=== PATIENT | female | born 1995 | race African-American/Black ===

== ENCOUNTER 2021-01-09 19:33 | Emergency (ER) | payer OTHER, SELFPAY ==
[2021-01-09 21:20] LABS: Absolute Lymphocytes (CBC) 2.2 K/uL (0.7-4.9); Basophils % 0.4 % (0-1.3); Hematocrit 29.2 % (36.0-45.0); Lymphocytes % 36.8 % (15.3-44.8); MPV 8.1 fL (7.6-11.3)
--- NOTE | 2021-01-09 21:27 | ER ---
Nurse's Notes [facility] Name: Trish Yung Age: 25 yrs Sex: Female : 1995 Arrival Date: 01/09/2021 Time: 19:35 Bed 19 Private MD: Diagnosis: Abnormal uterine and vaginal bleeding, unspecified Presentation: 01/09 19:53 Chief complaint: Patient states: vaginal bleeding with clots since 11/29/20, reports lp1 having regular menstrual cycles, hx of tubal ligation; Reports feeling dizzy at work today about 1700. Coronavirus screen: Client denies travel out of the [place] in the last 14 days. At this time, the client does not indicate any symptoms associated with coronavirus-19. Ebola Screen: No symptoms or risks identified at this time. Initial Sepsis Screen: Does the patient meet any 2 criteria? No. Patient's initial sepsis screen is negative. Does the patient have a suspected source of infection? No. Patient's initial sepsis screen is negative. Risk Assessment: Do you want to hurt yourself or someone else? Patient reports no desire to harm self or others. Onset of symptoms was January 09, 2021. 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 - Social history:: Smoking status: Patient denies any tobacco usage or history of. Screenin:56 Abuse screen: Denies threats or abuse. Denies injuries from another. Nutritional lp1 screening: No deficits noted. Tuberculosis screening: No symptoms or risk factors identified. Fall Risk None identified. Vital Signs: 19:53 BP 151 / 100; Pulse 90; Resp 18; Temp 98.8(O); Pulse Ox 100% on R/A; Weight 90.26 kg lp1 (R); Height 5 ft. 2 in. (157.48 cm); Pain 0/10; 19:53 Body Mass Index 36.40 (90.26 kg, 157.48 cm) lp1 ED Course: 19:35 Patient arrived in ED. bp1 19:38 Brandon Flower PA is PHCP. [facility] 19:38 Fco Rogers MD is Attending Physician. [facility] 19:55 Triage completed. lp1 19:55 Arm band placed on. lp1 21:08 Inserted saline lock: 20 gauge in right antecubital area, using aseptic technique. dh4 Blood collected. 21:55 Leanne Giles, RN is Primary Nurse. ll2 Administered Medications: No medications were administered Outcome: : Discharge ordered by . [facility] 22:02 Patient left the ED. 2 Signatures: Brandon Flower PA PA [facility] Roseann Leon, RN RN lp1 Neftali Morales 4 Leanne Giles, WILLIS RN 2 Ailyn Radford bp1
--- NOTE | 2021-01-09 21:28 | EDPHYS ---
Physician Documentation [facility] Name: Trish Yung Age: 25 yrs Sex: Female : 1995 Arrival Date: 01/09/2021 Time: 19:35 Bed 19 Private MD: ED Physician Fco Rogers HPI: 01/09 20:13 This 25 yrs old Black Female presents to ER via Ambulatory with complaints of Vaginal jmm Bleeding, Lightheaded. 20:13 The patient presents with vaginal bleeding that is. Onset: The symptoms/episode jmm began/occurred gradually, 1 month(s) ago. Modifying factors: The symptoms are alleviated by nothing, the symptoms are aggravated by nothing. Associated signs and symptoms: Pertinent positives: weakness. The patient's method of control includes tubal ligation. Patient states bleeding began approx 1 month ago, has decreased in severity but at its worse was passing clots. Patient is concerned she may have lost too much blood. . 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 - Social history:: Smoking status: Patient denies any tobacco usage or history of. ROS: 20:13 Constitutional: Negative for fever, chills, and weight loss, Cardiovascular: Negative jmm for chest pain, palpitations, and edema, Respiratory: Negative for shortness of breath, cough, wheezing, and pleuritic chest pain. 20:13 : Positive for vaginal bleeding. 20:13 All other systems are negative. Exam: 20:13 Constitutional: This is a well developed, well nourished patient who is awake, alert, jmm and in no acute distress. Head/Face: atraumatic. Eyes: EOMI, no conjunctival erythema appreciated ENT: Moist Mucus Membranes Neck: Trachea midline, Supple Chest/axilla: Normal chest wall appearance and motion. Cardiovascular: Regular rate and rhythm. No edema appreciated Respiratory: Normal respirations, no respiratory distress appreciated Abdomen/GI: Non distended, soft Back: Normal ROM Skin: General appearance color normal MS/ Extremity: Moves all extremities, no obvious deformities appreciated, no edema noted to the lower extremities Neuro: Awake and alert, normal gait Psych: Behavior is normal, Mood is normal, Patient is cooperative and pleasant Vital Signs: 19:53 BP 151 / 100; Pulse 90; Resp 18; Temp 98.8(O); Pulse Ox 100% on R/A; Weight 90.26 kg lp1 (R); Height 5 ft. 2 in. (157.48 cm); Pain 0/10; 19:53 Body Mass Index 36.40 (90.26 kg, 157.48 cm) lp1 MDM: 19:43 Patient medically screened. [facility] 21:25 Data reviewed: vital signs, nurses notes. Counseling: I had a detailed discussion with [facility] the patient and/or guardian regarding: the historical points, exam findings, and any diagnostic results supporting the discharge/admit diagnosis, lab results, the need for outpatient follow up, to return to the emergency department if symptoms worsen or persist or if there are any questions or concerns that arise at home. ED course: VS normal. H/H low but not transfuseable. Will prescribe ferrous sulfate. Patient advised to follow up with obgy for further evaluation. Patient understood and agrees with the plan of care. . 01/09 19:51 Order name: CBC with Diff; Complete Time: 21:24 [facility] 01/09 21:17 Order name: Urine Dipstick--Ancillary (enter results) [facility] 01/09 19:51 Order name: Urine Dipstick-Ancillary (obtain specimen); Complete Time: 21:30 [facility] 01/09 21:17 Order name: Urine --Ancillary (enter results) [facility] 01/09 21:18 Order name: Urine Dipstick-Ancillary; Complete Time: 21:35 [facility] 01/09 21:18 Order name: Urine --Ancillary; Complete Time: 21:35 [facility] 01/09 19:51 Order name: Urine Test (obtain specimen); Complete Time: 21:30 [facility] Administered Medications: No medications were administered Disposition: 01/10 06:53 Co-signature as Attending Physician, Fco Rogers MD. [email or web address] Disposition: 01/09/21 21:27 Discharged to Home. Impression: Abnormal uterine and vaginal bleeding, unspecified. - Condition is Stable. - Discharge Instructions: Abnormal Uterine Bleeding. - Prescriptions for Ferrous Sulfate 325 mg (65 mg Iron) Oral Tablet - take 1 tablet by ORAL route every 8 hours; 90 tablet. - Medication Reconciliation Form, Thank You Letter, Antibiotic Education, Prescription Opioid Use, Work release form form. - Follow up: Private Physician; When: 2 - 3 days; Reason: Recheck today's complaints, Continuance of care, Re-evaluation by your physician. Signatures: Dispatcher [employer] EDMS Brandon Flower PA PA jmm Pena, Laura, RN RN lp1 Leanne Giles RN RN ll2 Fco Rogers MD MD mh7 Corrections: (The following items were deleted from the chart) 01/09 22:02 21:27 01/09/2021 21:27 Discharged to Home. Impression: Abnormal uterine and vaginal ll2 bleeding, unspecified. Condition is Stable. Forms are Medication Reconciliation Form, Thank You Letter, Antibiotic Education, Prescription Opioid Use. Follow up: Private Physician; When: 2 - 3 days; Reason: Recheck today's complaints, Continuance of care, Re-evaluation by your physician. kevin
[2021-01-09 21:33] LABS: Urine Blood NEGATIVE (NEG); Urine Glucose NEGATIVE (NEG); Urine Protein NEGATIVE (NEG); Urine Specific Gravity 1.015 (1.005-1.030); Urine pH 5.5 (5.0-7.0)
[2021-01-09 22:50] VITALS: BP 151/100; TEMP 98.8; O2SAT 100
== END 2021-01-09 22:02 | disposition home or self-care (01) ==
LOC: ER 19:33
DX: N93.9 Abnormal uterine and vaginal bleeding, unspecified (principal)
CPT/HCPCS: 36415; 81003; 81025; 85025; 99283

== ENCOUNTER 2021-02-09 23:46 | Emergency (ER) | payer SELFPAY ==
--- OUTSIDE RECORDS SUMMARY | 2021-02-09 23:49 | XMS REPORT | Continuity of Care Document ---
:1995 Author Organization [facility] t Address [address] [place] [address] Care Team Providers Name Role Phone Brett Mauro DO Attending Clinician Ashley CARPENTER C Attending Clinician Niko RIVAS N Attending Clinician Problems This patient has no known problems. Allergies, Adverse Reactions, Alerts This patient has no known allergies or adverse reactions. Medications This patient has no known medications. Procedures This patient has no known procedures. Encounters Start End Encounter Admission Attending Care Care Encounter Source Date/Time Date/Time Type Type Clinicians Facility Department ID 2021-02-09 2021-02-09 Patient PRESTON Mauro [id number] 00:00:00 00:00:00 Outreach [facility] [id number] Brett [facility] [id number] PAVILLION [id number] 2020-12-30 2020-12-30 Telephone PRESTON Ramirez [id number] 00:00:00 00:00:00 Nohemy Ruelas DIRECTOR TRIAL [id number] [facility] [id number] MATERNAL [id number] & CHILD [address] [place] [address] 2020-12-04 2020-12-04 Office PRESTON Ramirez [id number] 08:31:40 09:41:05 Visit Nohemy Ruelas DIRECTOR TRIAL [id number] [facility] [id number] MATERNAL [id number] & CHILD [address] [facility] 2019-06-21 2019-06-21 Office Niko [facility] [id number] 14:54:30 16:16:01 Visit Kristin Landry DIRECTOR TRIAL [id number] [facility] [id number] MATERNAL [id number] & CHILD [address] [facility] Results This patient has no known results.
--- NOTE | 2021-02-10 01:08 | EDPHYS ---
Physician Documentation [facility] Name: Trish Yung Age: 26 yrs Sex: Female : 1995 Arrival Date: 02/09/2021 Time: 23:49 Bed 13 Private MD: ATUL Physician Law Durham HPI: 02/10 01:06 This 26 yrs old Black Female presents to ER via Ambulatory with complaints of Ear Pain. pm1 01:06 The patient presents with pain. The complaints affect the right ear. Onset: The pm1 symptoms/episode began/occurred 3 day(s) ago. Modifying factors: The symptoms are alleviated by covering ear, the symptoms are aggravated by touching, wind. Associated signs and symptoms: Pertinent negatives: fever, sore throat, tinnitus. Severity of symptoms: in the emergency department the symptoms are worse. The patient has not recently seen a physician. 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 - Social history:: Smoking status: Patient denies any tobacco usage or history of. ROS: 01:06 Constitutional: Negative for fever, chills, and weight loss. pm1 01:06 Neck: Negative for injury, pain, and swelling, Cardiovascular: Negative for chest pain, palpitations, and edema, Respiratory: Negative for shortness of breath, cough, wheezing, and pleuritic chest pain, MS/Extremity: Negative for injury and deformity, Skin: Negative for injury, rash, and discoloration. 01:06 Neuro: Negative for headache, weakness, numbness, tingling, and seizure. 01:06 ENT: Positive for ear pain, Negative for drainage from ear(s). Exam: 01:06 Constitutional: This is a well developed, well nourished patient who is awake, alert, pm1 and in no acute distress. Head/Face: Normocephalic, atraumatic. 01:06 Skin: Warm, dry with normal turgor. Normal color with no rashes, no lesions, and no evidence of cellulitis. MS/ Extremity: Pulses equal, no cyanosis. Neurovascular intact. Full, normal range of motion. 01:06 ENT: External ear(s): are unremarkable, Ear canal(s): are normal, TM's: bulging, on the right, erythema, that is moderate, on the right, Examination of the other ear shows no obvious abnormality. 01:06 Cardiovascular: Exam negative for acute changes, Rate: normal, Rhythm: regular, Pulses: no pulse deficits are appreciated. 01:06 Respiratory: Exam negative for acute changes, respiratory distress, shortness of breath. 01:06 Neuro: Exam negative for acute changes, Orientation: is normal, Mentation: is normal, Motor: is normal, moves all fours. Vital Signs: 00:20 Pulse 97; Resp 18; Temp 99.1(O); Pulse Ox 99% on R/A; Weight 89.81 kg; Height 5 ft. 2 em in. (157.48 cm); Pain 6/10; 00:20 Body Mass Index 36.21 (89.81 kg, 157.48 cm) em MDM: 00:25 Patient medically screened. pm1 01:06 Data reviewed: vital signs. Data interpreted: Pulse oximetry: on room air is 99 %. pm1 Interpretation: normal. Counseling: I had a detailed discussion with the patient and/or guardian regarding: the historical points, exam findings, and any diagnostic results supporting the discharge/admit diagnosis, the need for outpatient follow up, a family practitioner, to return to the emergency department if symptoms worsen or persist or if there are any questions or concerns that arise at home. Administered Medications: No medications were administered Disposition: 06:57 Co-signature as Attending Physician, Law Durham MD I agree with the assessment and manolo plan of care. Disposition: 02/10/21 01:07 Discharged to Home. Impression: Otitis media, unspecified, right ear. - Condition is Stable. - Discharge Instructions: Otitis Media, Adult. - Prescriptions for Augmentin 875- 125 mg Oral Tablet - take 1 tablet by ORAL route every 12 hours for 10 days; 20 tablet. Tylenol- Codeine #3 300-30 mg Oral Tablet - take 2 tablets by ORAL route every 4-6 hours As needed; 20 tablet. - Medication Reconciliation Form, Thank You Letter, Antibiotic Education, Prescription Opioid Use, Work release form form. - Follow up: Emergency Department; When: As needed; Reason: Worsening of condition. Follow up: Private Physician; When: 2 - 3 days; Reason: Recheck today's complaints, Continuance of care, Re-evaluation by your physician. - Problem is new. - Symptoms have improved. Signatures: Law Durham MD MD cha Munoz, Edgar, RN RN Jeff Patricia NP TALKBACK HOST pm1 Darrius Carballo RN RN sf Corrections: (The following items were deleted from the chart) 01:25 01:07 02/10/2021 01:07 Discharged to Home. Impression: Otitis media, unspecified, right sf ear. Condition is Stable. Forms are Medication Reconciliation Form, Thank You Letter, Antibiotic Education, Prescription Opioid Use. Follow up: Emergency Department; When: As needed; Reason: Worsening of condition. Follow up: Private Physician; When: 2 - 3 days; Reason: Recheck today's complaints, Continuance of care, Re-evaluation by your physician. Problem is new. Symptoms have improved. pm1
--- NOTE | 2021-02-10 01:08 | ER ---
Nurse's Notes [facility] Name: Trish Yung Age: 26 yrs Sex: Female : 1995 Arrival Date: 02/09/2021 Time: 23:49 Bed 13 Private MD: Diagnosis: Otitis media, unspecified, right ear Presentation: 02/10 00:20 Chief complaint: Patient states: right ear pain that started 2 days ago, pain radiates em into right side of neck and right arm, denies fever. Coronavirus screen: Client denies travel out of the [place] in the last 14 days. Ebola Screen: Patient negative for fever greater than or equal to 101.5 degrees Fahrenheit, and additional compatible Ebola Virus Disease symptoms Patient denies exposure to infectious person. Patient denies travel to an Ebola-affected area in the 21 days before illness onset. No symptoms or risks identified at this time. Initial Sepsis Screen: Does the patient meet any 2 criteria? HR > 90 bpm. No. Patient's initial sepsis screen is negative. Does the patient have a suspected source of infection? No. Patient's initial sepsis screen is negative. Risk Assessment: Do you want to hurt yourself or someone else? Patient reports no desire to harm self or others. Onset of symptoms was February 10, 2021. 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 - Social history:: Smoking status: Patient denies any tobacco usage or history of. Assessment: 01:24 Reassessment: MD/EMMETT only. sf Vital Signs: 00:20 Pulse 97; Resp 18; Temp 99.1(O); Pulse Ox 99% on R/A; Weight 89.81 kg; Height 5 ft. 2 em in. (157.48 cm); Pain 6/10; 00:20 Body Mass Index 36.21 (89.81 kg, 157.48 cm) em ED Course: 02/09 23:49 Patient arrived in ED. cl3 02/10 00:23 Triage completed. em 00:24 Arm band placed on. em 00:25 Darrius Carballo, RN is Primary Nurse. sf 00:25 Jeff Alvarez NP is PHCP. pm1 00:25 Law Durham MD is Attending Physician. pm1 Administered Medications: No medications were administered Outcome: 01:07 Discharge ordered by . pm1 01:24 Discharged to home ambulatory. sf 01:24 Condition: stable 01:24 Discharge instructions given to patient, Instructed on discharge instructions, follow up and referral plans. medication usage, Demonstrated understanding of instructions, follow-up care, medications, Prescriptions given X 2. 01:25 Patient left the ED. sf Signatures: Sumeet Beltran RN RN Jeff Alvarez NP STAND UP FORKLIFT OPERATOR pm1 Barulio Veloz cl3 Darrius Carballo, WILLIS RN
[2021-02-10 02:38] VITALS: TEMP 99.1; O2SAT 99
== END 2021-02-10 01:25 | disposition home or self-care (01) ==
LOC: ER 23:46
DX: H66.91 Otitis media, unspecified, right ear (principal)
CPT/HCPCS: 99281

== ENCOUNTER 2021-07-13 23:38 | Emergency (ER) | payer SELFPAY ==
--- OUTSIDE RECORDS SUMMARY | 2021-07-13 23:42 | XMS REPORT | Continuity of Care Document ---
:1995 Author Organization [facility] t Address [address] [place] [address] Care Team Providers Name Role Phone Dinesh Alfaro Attending Clinician Gris Mcclelland Attending Clinician Problems This patient has no known problems. Allergies, Adverse Reactions, Alerts This patient has no known allergies or adverse reactions. Medications This patient has no known medications. Procedures This patient has no known procedures. 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
--- NOTE | 2021-07-14 02:00 | ER ---
Nurse's Notes [facility] Name: Trish Yung Age: 26 yrs Sex: Female : 1995 Arrival Date: 07/13/2021 Time: 23:44 Bed Waiting Private MD: Diagnosis: Acute pharyngitis, unspecified;SARS-associated coronavirus as the cause of diseases classified elsewhere Presentation: 07/13 23:53 Chief complaint: Patient states: Sore throat, body aches, and fever x 1 day. kg Coronavirus screen: Client denies travel out of the [place] in the last 14 days. At this time, unable to obtain information related to travel outside the [place] At this time, the client does not indicate any symptoms associated with coronavirus-19. Ebola Screen: Patient negative for fever greater than or equal to 101.5 degrees Fahrenheit, and additional compatible Ebola Virus Disease symptoms Patient denies exposure to infectious person. Patient denies travel to an Ebola-affected area in the 21 days before illness onset. Initial Sepsis Screen: Does the patient meet any 2 criteria? No. Patient's initial sepsis screen is negative. Does the patient have a suspected source of infection? No. Patient's initial sepsis screen is negative. Risk Assessment: Do you want to hurt yourself or someone else? Patient reports no desire to harm self or others. Onset of symptoms was July 12, 2021. 23:53 Method Of Arrival: Ambulatory kg 23:53 Acuity: ADÁN 4 kg Triage Assessment: 23:55 General: Appears in no apparent distress. Behavior is calm, cooperative, appropriate kg for age, quiet. Pain: Complains of pain in Back, back of legs, generalized. EENT: Reports difficulty swallowing since 07/12 pain in Throat when swallowing Pain is 6 out of 10 on a pain scale. since 07/12. 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 - Social history:: Smoking status: Patient reports the use of cigarette tobacco products, smokes one-half pack cigarettes per day. Screenin:57 Abuse screen: Denies threats or abuse. Denies injuries from another. Nutritional kg screening: No deficits noted. Tuberculosis screening: No symptoms or risk factors identified. Fall Risk None identified. Assessment: 07/14 01:57 General: Appears in no apparent distress. Behavior is calm, cooperative. Neuro: Level bb of Consciousness is awake, alert, obeys commands, Oriented to person, place, time, situation. Cardiovascular: Capillary refill < 3 seconds Patient's skin is warm and dry. Respiratory: Airway is patent Respiratory effort is even, unlabored. GI: No signs and/or symptoms were reported involving the gastrointestinal system. EENT: Throat is clear. Derm: Skin is dry, Skin is normal, Skin temperature is warm. Musculoskeletal: Circulation, motion, and sensation intact. pt discharged in triage room pt is A\T\O x 4, resp unlabored, verbalized understanding of and agrees to plan of care discharge instructions given pt ambulated with steady gait to exit. Vital Signs: 07/13 23:53 BP 133 / 83; Pulse 90; Resp 20; Temp 99.0(TE); Pulse Ox 100% ; Weight 86.18 kg (R); kg Height 5 ft. 2 in. (157.48 cm) (R); Pain 6/10; 07/14 02:06 BP 133 / 86; Pulse 85; Resp 16 S; Pulse Ox 99% on R/A; bb 07/13 23:53 Body Mass Index 34.75 (86.18 kg, 157.48 cm) kg ED Course: 07/13 23:44 Patient arrived in ED. cf2 23:55 Triage completed. kg 23:55 Arm band placed on right wrist. kg 23:57 Patient has correct armband on for positive identification. kg 23:57 No provider procedures requiring assistance completed. kg 07/14 01:12 ED provider notified of pt COVID positive. bb 01:53 Law Whelan PA is PHCP. cp 01:53 Fco Rogers MD is Attending Physician. cp 02:00 Patient did not have IV access during this emergency room visit. bb Administered Medications: No medications were administered Outcome: :59 Discharged to home ambulatory. bb 01:59 Condition: stable 01:59 Discharge instructions given to patient, Instructed on discharge instructions, follow up and referral plans. medication usage, Demonstrated understanding of instructions, follow-up care, medications, Prescriptions given X 3. 02:00 Discharge ordered by . hal 02:06 Patient left the ED. bb Signatures: Neva Chi, RN RN bb Law Whelan PA PA cp Frazier, Celesta cf2 Anai Méndez RN RN kg
--- NOTE | 2021-07-14 02:00 | EDPHYS ---
Physician Documentation [facility] Name: Trish Yung Age: 26 yrs Sex: Female : 1995 Arrival Date: 07/13/2021 Time: 23:44 Bed Waiting Private MD: ATUL Physician Fco Rogers HPI: 07/14 01:54 This 26 yrs old Black Female presents to ER via Ambulatory with complaints of Sore cp Throat, BODY ACHES. 01:54 The patient presents with sore throat. Onset: The symptoms/episode began/occurred last cp night. Associated signs and symptoms: Pertinent positives: fever, body aches, Pertinent negatives cough, diarrhea, headache, vomiting. Patient reports she has not received the COVID-19 vaccination. 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 - Social history:: Smoking status: Patient reports the use of cigarette tobacco products, smokes one-half pack cigarettes per day. ROS: 07/14 01:56 Eyes: Negative for injury, pain, redness, and discharge. cp Constitutional: Positive for body aches, Negative for fever, poor PO intake. ENT: Positive for sore throat, Negative for drainage from ear(s), ear pain, difficulty swallowing, difficulty handling secretions, hoarseness. Neck: Negative for pain with movement, pain at rest, stiffness. Respiratory: Negative for cough, shortness of breath, wheezing. Abdomen/GI: Negative for abdominal pain, vomiting, diarrhea, constipation. Skin: Negative for rash. Neuro: Negative for headache. All other systems are negative. Exam: 01:57 Head/Face: Normocephalic, atraumatic. cp 01:57 Constitutional: The patient appears in no acute distress, alert, awake, non-toxic, well developed, well nourished, obese. 01:57 Eyes: Periorbital structures: appear normal, Conjunctiva: normal, no exudate, no injection, Sclera: no appreciated abnormality, Lids and lashes: appear normal, bilaterally. 01:57 ENT: External ear(s): are unremarkable, Nose: is normal, Mouth: Lips: moist, Oral mucosa: moist, Posterior pharynx: Airway: no evidence of obstruction, patent, swelling, is not appreciated, erythema, that is mild, exudate, is not appreciated. 01:57 Chest/axilla: Inspection: normal. 01:57 Cardiovascular: Rate: normal. 01:57 Respiratory: the patient does not display signs of respiratory distress, Respirations: normal, no use of accessory muscles, no retractions, labored breathing, is not present. 01:57 Abdomen/GI: Exam negative for discomfort, distension, guarding, Inspection: abdomen appears normal. Vital Signs: 07/13 23:53 BP 133 / 83; Pulse 90; Resp 20; Temp 99.0(TE); Pulse Ox 100% ; Weight 86.18 kg (R); kg Height 5 ft. 2 in. (157.48 cm) (R); Pain 6/10; 07/14 02:06 BP 133 / 86; Pulse 85; Resp 16 S; Pulse Ox 99% on R/A; bb 07/13 23:53 Body Mass Index 34.75 (86.18 kg, 157.48 cm) kg MDM: 01:58 Differential diagnosis: group A strep tonsillitis, laryngitis, mononucleosis, cp pharyngitis, retropharyngeal abcess tonsillitis, upper respiratory infection, uvulitis. Data reviewed: vital signs, nurses notes, lab test result(s), and as a result, I will discharge patient. Counseling: I had a detailed discussion with the patient and/or guardian regarding: the historical points, exam findings, and any diagnostic results supporting the discharge/admit diagnosis, lab results, to return to the emergency department if symptoms worsen or persist or if there are any questions or concerns that arise at home. 02:00 Patient medically screened. cp 07/13 23:59 Order name: Flu kg 07/13 23:59 Order name: Strep kg 07/14 00:44 Order name: Throat Culture EDMS 07/14 01:12 Order name: SARS-COV-2 RT PCR EDMS Administered Medications: No medications were administered Disposition: 07:09 Co-signature as Attending Physician, Fco Rogers MD. 7 Disposition Summary: 07/14/21 02:00 Discharge Ordered Location: Home cp Problem: new cp Symptoms: are unchanged cp Condition: Stable cp Diagnosis - Acute pharyngitis, unspecified cp - SARS-associated coronavirus as the cause of diseases classified elsewhere cp Followup: cp - With: Private Physician - When: 2 - 3 days - Reason: Worsening of condition Discharge Instructions: - Discharge Summary Sheet bb - COVID-19 cp - Things to Know about the COVID-19 Pandemic - [facility] cp - 10 Things You Can Do to Manage Your COVID-19 Symptoms at Home - [facility] cp - COVID-19: Quarantine vs. Isolation - [facility] cp - Prevent the Spread of COVID-19 if You Are Sick - [facility] cp Forms: - Work release form bb - Medication Reconciliation Form cp - Thank You Letter cp - Antibiotic Education cp - Prescription Opioid Use cp Prescriptions: - ivermectin 3 mg Oral tablet - take 5 tablet by ORAL route every other day; 10 tablet; Refills: 0, Product cp Selection Permitted - Ibuprofen 800 mg Oral Tablet - take 1 tablet by ORAL route every 8 hours As needed take with food; 30 tablet; cp Refills: 0, Product Selection Permitted - Zithromax Z-Duane 250 mg Oral Tablet - take 1 tablet by ORAL route as directed for 5 days Day 1 - take two (2) tablets cp one time. 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 EDMS EDMS
[2021-07-14 02:19] VITALS: TEMP 99
[2021-07-14 02:21] VITALS: BP 133/86; O2SAT 99
== END 2021-07-14 02:06 | disposition home or self-care (01) ==
LOC: ER 23:38
DX: U07.1 COVID-19 (principal); F17.210 Nicotine dependence, cigarettes, uncomplicated
CPT/HCPCS: 87070; 87081; 87804; 99282; U0003

== ENCOUNTER 2022-04-21 19:34 | Emergency (ER) | payer OTHER, SELFPAY ==
--- OUTSIDE RECORDS SUMMARY | 2022-04-21 19:38 | XMS REPORT | Continuity of Care Document ---
:1995 Author Organization [facility] t Address [address] [place] [address] Dr. R[address]. [address] [place] [address] Care Team Providers Name Role Phone Suraj PENDLETON Primary Care Physician Unavailable KVNG Attending Clinician Unavailable KVNG Attending Clinician Unavailable Suraj PENDLETON Attending Clinician Unavailable Pob, Lab Main Attending Clinician Unavailable Woody Mera MD Attending Clinician WOODY MERA Attending Clinician Unavailable Doctor Unassigned, Name Attending Clinician Unavailable BERNARD Attending Clinician Unavailable Marco Antonio SIDE PANEL HANGER Attending Clinician Ashley CARPENTER, C Attending Clinician Immanuel SIDE PANEL HANGER, R Attending Clinician Niko SIDE PANEL HANGER, N Attending Clinician BERNARD Admitting Clinician Unavailable Payers Payer Name Policy Type Policy Number Effective Date Expiration Date S ource [place]ICAID [place] [id number] 2022 00:00:00 Problems Condition Condition Condition Status Onset Resolution Last Treating Co mments Source Name Details Category Date Date Treatment Clinician Date High risk High risk Disease Active Uni vers , , - [place] Anemia of Anemia of Disease Active Uni vers mother in mother in 5-06 [place] of , , [place] antepartum antepartum 00 Me dical Branch Multiparit Multiparit Disease Active U nivers y y 5-05 ity of 00:00: [place] 00 Medical Branch History of History of Disease Active Overview : Univers 5-05 Formattin ity of section section 00:00: g of this [place] 00 note Medical might be Branch different from the original. x3 Elevated Elevated Disease Active Unive rs blood blood 5-05 ity of pressure pressure 00:00: [place] reading reading 00 Medical without without Branch diagnosis diagnosis of of hypertensi hypertensi on on Parapharyn Parapharyn Disease Active 2020-11 U nivers geal space geal space 0-05 it y of abscess abscess 00:00: [place] 00 Medical Branch Chlamydia Chlamydia Disease Active Overview: Univers trachomati trachomati 3-19 Formattin ity of s s 00:00: g of this [place] infection infection 00 note Medi [place] of lower of lower might be Bran ch genitourin genitourin different moody sites moody sites from the original. EDWAR in 3 months BV BV Disease Active Univers (bacterial (bacterial 3-18 it y of vaginosis) vaginosis[place] Hx of Hx of Disease Active 2017-11 Overview: Univer s tubal tubal 0-22 Formattin ity of ligation ligation 00:00: g of this [place] 00 note Medical might be Branch different from the original. Only left per note 6 Obesity in Obesity in Disease Active U nivers 3-28 ity of 00:00: [place] 00 [facility] Allergies, Adverse Reactions, Alerts Allergy Allergy Status Severity Reaction(s) Onset Inactive Treating Comm ents Source Name Type Date Date Clinician NO KNOWN Drug Active Univers ALLERGIE Class ity of S [facility] Social History Social Habit Start Date Stop Date Quantity Comments Source ASSERTION 2022-02-10 [facility] 00:00:00 [facility] Exposure to 2022-04-05 2022-04-15 Not sure [facility] SARS-CoV-2 (event) 00:00:00 10:28:00 [facility] Alcohol intake 2022-04-15 2022-04-15 Ex-drinker [facility] 00:00:00 00:00:00 (finding) [facility] Tobacco Comment 2022-03-24 2022-03-24 quit when she Univer sity of 00:00:00 00:00:00 found out she [place] Medic al was Branch History of tobacco 2022-02-18 Cigarette Smoker University of use 00:00:00 [facility] Cigarettes smoked 2021-08-24 2021-08-24 Univers ity of current (pack per 00:00:00 00:00:00 [facility] ) - Reported Branch Tobacco use and 2021-08-24 2021-08-24 Former user Universi ty of exposure 00:00:00 00:00:00 [facility] Branch History SDOH 2020-12-04 2020-12-04 99 University o f Alcohol Frequency 00:00:00 00:00:[address] [facility] Branch History SDOH 2020-12-04 2020-12-04 99 [place] o f Alcohol Std Drinks 00:00:00 00:00:00 [facility] History SDOH 2020-12-04 2020-12-04 99 [place] o f Alcohol Binge 00:00:00 00:00:00 [place] [facility] Alcohol Comment 2020-12-04 2020-12-04 social Universit y of 00:00:00 00:00:00 [facility] Sex Ass[birth year] At [birth year] Universit y of 00:00:00 00:00:00 [facility] Smoking Status Start Date Stop Date Source Unknown if ever smoked [facility] y [facility] [place] [facility] Former smoker 2021-08-24 00:00:00 2021-08-24 00:00:00 [facility] Medications Ordered Filled Start Stop Current Ordering Indication Dosage Frequency Signature Comments Components Source Medication Medication Date Date Medication? Clinician (SIG) Name Name PNV Yes Take by Univers no.95/rubina 5-27 mouth. ity of us 14:27: [place] fum/folic 13 Medical ac Branch ( ORAL) PNV Yes Take by Univers no.95/rubina 5-27 mouth. ity of us 14:27: [place] fum/folic 13 Medical ac Branch ( ORAL) PNV Yes Take by Univers no.95/rubina 5-27 mouth. ity of us 14:27: [place] fum/folic 13 Medical ac Branch ( ORAL) polycarboph Yes [id number] 625mg Take 1 Univers il 5-27 tablet by ity of (FIBERCON) 00:00: mouth [place] 625 mg 00 daily. Medical tablet Branch polycarboph 0 Yes [id number] 625mg Take 1 Univers il 5-27 tablet by ity of (FIBERCON) 00:00: mouth [place] 625 mg 00 daily. Medical tablet Branch polycarboph 0 Yes [id number] 625mg Take 1 Univers il 5-27 tablet by ity of (FIBERCON) 00:00: mouth [place] 625 mg 00 daily. Medical tablet Branch ferrous Yes [id number] 325mg Take 1 Un juan sulfate 325 5-09 tablet by ity of mg (65 mg 00:00: mouth 2 [place] iron) 00 (two) Medical tablet times Branch daily. ascorbic Yes [id number] 500mg Take 1 U nivers acid, 5-09 tablet by ity of vitamin C, 00:00: mouth [place] 500 mg 00 (three) Medical tablet times Branch daily. ferrous Yes [id number] 325mg Take 1 Un juan sulfate 325 5-09 tablet by ity of mg (65 mg 00:00: mouth 2 [place] iron) 00 (two) Medical tablet times Branch daily. ascorbic Yes [id number] 500mg Take 1 U nivers acid, 5-09 tablet by ity of vitamin C, 00:00: mouth 3 [place] 500 mg 00 (three) Medical tablet times Branch daily. ferrous 2021- No [id number] 325mg Take 1 U nivers sulfate 325 - 05-27 tablet by it y of mg (65 mg 00:00: 00:00 [place] iron) 00 :00 (two) Medical tablet times Branch daily. ascorbic 202- No [id number] 500mg Take 1 Univers acid, 5-09 05-27 tablet by ity of vitamin C, 00:00: 00:00 mouth 3 [place] 500 mg 00 :00 (three) Medical tablet times Branch daily. ascorbic Yes [id number] 500mg Take 1 U nivers acid, 5-06 tablet by ity of vitamin C, 00:00: mouth [place] 500 mg 00 (three) Medical tablet times Branch daily. ferrous Yes [id number] 325mg Take 1 Un juan sulfate 325 5-06 tablet by ity of mg (65 mg 00:00: mouth 2 [place] iron) 00 (two) Medical tablet times Branch daily. ascorbic Yes [id number] 500mg Take 1 U nivers acid, 5-06 tablet by ity of vitamin C, 00:00: mouth [place] 500 mg 00 (three) Medical tablet times Branch daily. ferrous Yes [id number] 325mg Take 1 Un juan sulfate 325 5-06 tablet by ity of mg (65 mg 00:00: mouth 2 [place] iron) 00 (two) Medical tablet times Branch daily. ascorbic Yes [id number] 500mg Take 1 U nivers acid, 5-06 tablet by ity of vitamin C, 00:00: mouth 3 [place] 500 mg 00 (three) Medical tablet times Branch daily. ferrous Yes [id number] 325mg Take 1 Un juan sulfate 325 5-06 tablet by ity of mg (65 mg 00:00: mouth 2 [place] iron) 00 (two) Medical tablet times Branch daily. ascorbic Yes [id number] 500mg Take 1 U nivers acid, 5-06 tablet by ity of vitamin C, 00:00: mouth 3 [place] 500 mg 00 (three) Medical tablet times Branch daily. ferrous Yes [id number] 325mg Take 1 Un juan sulfate 325 5-06 tablet by ity of mg (65 mg 00:00: mouth 2 [place] iron) 00 (two) Medical tablet times Branch daily. ascorbic Yes [id number] 500mg Take 1 U nivers acid, 5-06 tablet by ity of vitamin C, 00:00: mouth 3 [place] 500 mg 00 (three) Medical tablet times Branch daily. ferrous Yes [id number] 325mg Take 1 Un juan sulfate 325 5-06 tablet by ity of mg (65 mg 00:00: mouth 2 [place] iron) 00 (two) Medical tablet times Branch daily. proMETHazin Yes [id number] 25mg Take 1 Univers e 25 mg 5-05 tablet by ity of tablet 00:00: mouth [place] 00 every 6 Medical (six) Branch hours as needed for Nausea and Vomiting (N/V). proMETHazin Yes [id number] 25mg Take 1 Univers e 25 mg 5-05 tablet by ity of tablet 00:00: mouth [place] 00 every 6 Medical (six) Branch hours as needed for Nausea and Vomiting (N/V). proMETHazin 0 Yes [id number] 25mg Take 1 Univers e 25 mg 5-05 tablet by ity of tablet 00:00: mouth [place] 00 every 6 Medical (six) Branch hours as needed for Nausea and Vomiting (N/V). proMETHazin 0 Yes [id number] 25mg Take 1 Univers e 25 mg 5-05 tablet by ity of tablet 00:00: mouth [place] 00 every 6 Medical (six) Branch hours as needed for Nausea and Vomiting (N/V). proMETHazin 0 Yes [id number] 25mg Take 1 Univers e 25 mg 5-05 tablet by ity of tablet 00:00: mouth [place] 00 every 6 Medical (six) Branch hours as needed for Nausea and Vomiting (N/V). Immunizations Ordered Filled Immunization Date Status Comments [facility] e Immunization Name Name Influenza Virus 2020-12-04 Completed Universit y of Vaccine Quad .5 mL 00:00:00 [place] Medical IM 6+ MO Branch Influenza Virus 2020-12-04 Completed Universit y of Vaccine [place] .5 mL 00:00:00 [place] Medical IM 6+ MO Branch Influenza Virus 2020-12-04 Completed Universit y of Vaccine [place] .5 mL 00:00:00 [place] Medical IM 6+ MO Branch Influenza Virus 2020-12-04 Completed Universit y of Vaccine [place] .5 mL 00:00:00 [place] Medical IM 6+ MO Branch Influenza Virus 2020-12-04 Completed Universit y of Vaccine [place] .5 mL 00:00:00 [place] Medical IM 6+ MO Branch Influenza Virus 2015-08-28 Completed Universit y of Vaccine [place] IM 3+ 00:00:00 [facility] Influenza Virus 2015-08-28 Completed Universit y of Vaccine Quad IM 3+ 00:00:00 [facility] Influenza Virus 2015-08-28 Completed Universit y of Vaccine Quad IM 3+ 00:00:00 [facility] Influenza Virus 2015-08-28 Completed Universit y of Vaccine Quad IM 3+ 00:00:00 [facility] Influenza Virus 2015-08-28 Completed Universit y of Vaccine [place] IM 3+ 00:00:00 [facility] TDAP 2013-05-17 Completed University of 00:00:00 [facility] TDAP 2013-05-17 Completed University of 00:00:00 [facility] TDAP 2013-05-17 Completed University of 00:00:00 [facility] TDAP 2013-05-17 Completed University of 00:00:00 [facility] TDAP 2013-05-17 Completed University of 00:00:00 [facility] Rubella 2013-04-01 Completed University of 00:00:00 [facility] Rubella 2013-04-01 Completed University of 00:00:00 [facility] Rubella 2013-04-01 Completed University of 00:00:00 [facility] Rubella 2013-04-01 Completed University of 00:00:00 [facility] Rubella 2013-04-01 Completed University of 00:00:00 [facility] Influenza Virus 2010-09-21 Completed Universit y of Vaccine 00:00:00 [facility] Influenza Virus 2010-09-21 Completed Universit y of Vaccine 00:00:00 [facility] Influenza Virus 2010-09-21 Completed Universit y of Vaccine 00:00:00 [facility] Influenza Virus 2010-09-21 Completed Universit y of Vaccine 00:00:00 [facility] Influenza Virus 2010-09-21 Completed Universit y of Vaccine 00:00:00 [facility] Varicella 2010-08-24 Completed University of (varivax)(chicken 00:00:00 [place] M edical pox) Branch Varicella 2010-08-24 Completed University of (varivax)(chicken 00:00:00 [place] M edical pox) Branch Varicella 2010-08-24 Completed University of (varivax)(chicken 00:00:00 [place] M edical pox) Branch Varicella 2010-08-24 Completed University of (varivax)(chicken 00:00:00 [place] M edical pox) Branch Varicella 2010-08-24 Completed University of (varivax)(chicken 00:00:00 [place] M edical pox) Branch Td 2009-07-03 Completed University of 00:00:00 [facility] Td 2009-07-03 Completed University of 00:00:00 [facility] Td 2009-07-03 Completed University of 00:00:00 [facility] Td 2009-07-03 Completed University of 00:00:00 [facility] Td 2009-07-03 Completed University of 00:00:00 [facility] Vital Signs Vital Name Observation Time Observation Value Comments Source Systolic blood 2022-04-15 19:25:00 120 mm[Hg] Univer sity of pressure [facility] Diastolic blood 2022-04-15 19:25:00 76 mm[Hg] Unive rsity of pressure [facility] Heart rate 2022-04-15 19:25:00 106 /min Universi ty of [facility] Body temperature 2022-04-15 19:25:00 36.[address] [facility] Body height 2022-04-15 19:25:00 157.[address] [facility] Body weight 2022-04-15 19:25:00 84.732 kg Universi ty of [facility] Branch BMI 2022-04-15 19:25:00 34.17 kg/m2 Universi ty of [facility] Systolic blood 2022-04-06 19:22:46 120 mm[Hg] Univer sity of pressure [facility] Diastolic blood 2022-04-06 19:22:46 76 mm[Hg] Unive rsity of pressure [facility] Heart rate 2022-04-06 19:22:46 88 /min Universi ty of [facility] Respiratory rate 2022-04-06 19:22:46 16 /min [facility] ersity of [facility] Oxygen saturation in 2022-04-06 19:22:46 100 /min [facility] Arterial blood by [facility] [place] [facility] Pulse oximetry Branch Body temperature 2022-04-06 16:12:00 36.[address] [facility] Body height 2022-04-06 16:12:00 157.5 cm Universi ty of [place] [facility] [place] Body weight 2022-04-06 16:12:00 83.915 kg Universi ty of [place] [facility] BMI 2022-04-06 16:12:00 33.84 kg/m2 Universi ty of [place] [facility] Body height 2019-06-21 20:01:00 157.5 cm Universi ty of [place] [facility] Body weight 2019-06-21 20:01:00 84.142 kg Universi ty of [place] [facility] BMI 2019-06-21 20:01:00 33.93 kg/m2 Universi ty of [facility] Branch Systolic blood 2019-06-21 20:01:00 126 mm[Hg] Univer sity of pressure [facility] Diastolic blood 2019-06-21 20:01:00 79 mm[Hg] Unive rsity of [facility] Heart rate 2019-06-21 20:01:00 64 /min Universi [facility] Body temperature 2019-06-21 20:01:00 36.61 Lilia [facility] Res[facility] rate 2019-06-21 20:01:00 16 /min [facility] Body height 2019-06-21 20:01:00 157.5 cm [facility] Body weight 2019-06-21 20:01:00 84.142 kg [facility] BMI 2019-06-21 20:01:00 33.93 kg/m2 [facility] Systolic blood 2019-06-21 20:01:00 126 mm[Hg] Univer sity of [facility] Diastolic blood 2019-06-21 20:01:00 79 mm[Hg] Unive rsity of [facility] Heart rate 2019-06-21 20:01:00 64 /min [facility] [place] [facility] Body temperature 2019-06-21 20:01:00 36.61 Lilia [facility] Respiratory rate 2019-06-21 20:01:00 16 /min [facility] Procedures Procedure Date / Time Performing Clinician Source Performed ASSIGNMENT OF BENEFITS 2022-04-19 13:33:12 Doctor Unassigned, No [facility] Name [facility] POCT URINALYSIS W/O 2022-04-15 00:00:00 Quincy Mera [facility] SPECIFIC GRAVITY [facility] US FIRST 2022-04-06 18:00:00 Jay Bernard [facility] TRIMESTER LESS THAN 14 Medical B ranch WEEKS WITH TRANSVAGINAL POCT TEST 2022-04-06 16:28:00 Jay Bernard [facility] BASIC METABOLIC PANEL 2022-04-06 16:24:00 [facility] (NA, K, CL, CO2, Medical Branch GLUCOSE, BUN, CREATININE, CA) TOTAL BETA HCG ASSAY 2022-04-06 16:24:00 [facility] WITH DIFF 2022-04-06 16:24:00 Jay Bernard [facility] URINALYSIS 2022-04-06 16:24:00 Jay Bernard [facility] CONSENT/REFUSAL FOR 2022-04-06 16:01:12 Doctor Unassigned, No Un [facility] DIAGNOSIS AND TREATMENT Name [facility] Encounters Start End Encounter Admission Attending Care Care Encounter Source Date/Time Date/Time Type Type Clinicians Facility Department ID 2022-05-13 2022-05-13 Outpatient R CALLY CALDERON [facility] B [id number] Univers 09:15:00 09:15:00 CALLY CALDERON [id number] [facility] 2022-04-21 2022-04-21 Outpatient R ASHLEY [facility] [id number] Univers 09:00:00 09:00:00 NOHE[address] o f [facility] 2022-04-19 2022-04-19 Polish Maker Kajal, Lenore Lab Main [facility] 1.2.8 [id number] Univers 08:30:00 08:45:00 Visit Quincy Mera [id number] ity [facility] 4.2.7.2.686 [place] PROFESS[place] [id number] [place] dic[address] 2022-04-19 2022-04-19 Outpatient R [facility] [id number] Univers 08:30:00 08:30:00 [id number] ity [facility] [place] [facility] 2022-04-19 2022-04-19 Outpatient R QUINCY MERA [facility] [id number] Univers 08:30:00 08:30:00 ity [facility] [place] [facility] 2022-04-19 2022-04-19 Orders Doctor MCBRIDE [id number] Univers 00:00:00 00:00:00 Only Unassigned, VIRI 350.1.13.10 ity of [place] [facility] 4.2.7.2.686 [place] [id number] [address] 2022-04-15 2022-04-15 Outpatient R QUINCY MERA [facility] [id number] Univers 14:30:00 15:03:[address] [facility] 2022-04-15 2022-04-15 Initial Quincy Mera [facility] [id number] Univers 14:30:00 15:03:33 Cam CATIE [id number] i ty of Visit [facility] 4.2.7.2.686 [facility] [id number] [facility] 134 Branch 2022-04-15 2022-04-15 Outpatient R QUINCY MERA [facility] [id number] Univers 14:30:00 14:30:00 [id number] [facility] 2022-04-06 2022-04-06 Emergency X [facility] E[facility] [id number] Univers 11:15:00 14:25:00 JAY [facility] 2022-04-06 2022-04-06 Emergency [facility] [id number] Univers 11:15:00 14:25:00 [facility] [id number] i ty of [place] 4.2.7.2.686 [facility] [id number] [place] [id number] [place] 2022-03-25 2022-03-25 Telephone [facility] [id number] Univers 00:00:00 00:00:00 Nohemy Ruelas [employer] C[employer] 350.1.13.10 ity of [facility] 4.2.7.2.686 [place] MATERNAL [id number] Med ical & CHILD [address] [place] [address] 2022-03-24 2022-03-24 Outpatient R ASHLEY [facility] [id number] Univers 08:00:00 08:57:[address] [facility] 2021-03-16 2021-03-16 Office [facility] [id number] 14:12:23 14:40:46 Visit Negro Montiel [employer] 350.1.13.10 REGIONAL 4.2.7.2.686 MATERNAL [id number] & CHILD [address] [place] [address] 2019-06-21 2019-06-21 Office [facility] [id number] Univers 14:54:30 16:16:01 Visit Kristin Landry [employer]GING CATCHER 350.1.13.10 it y of REGIONAL 4.2.7.2.686 [place] MATERNAL [id number] Med ical & CHILD [address] [facility] 2019-06-21 2019-06-21 Office [facility] [id number] 14:54:30 16:16:01 Visit Kristin Landry [employer] CATCH[employer] [id number] REGIONAL 4.2.7.2.686 MATERNAL [id number] & CHILD [address] [place] [address] Results Test Description Test Time Test Comments Results Result Comments Source POCT URINALYSIS W/O SPECIFIC GRAVITY 2022-04-15 19:24:00 Test Item Value Reference Range Interpretation Comme nts POCT PH U (test code = 3254) n/a 5-8 POCT U LEUK EST (test code = 3263) n/a Negative - Negative POCT U NIT (test code = 3262) n/a Negative - Negative POCT U PROT (test code = 3259) Negative Negative - Negative POCT U GLU (test code = 3256) Negative - Negative POCT U KETONE (test code = 3258) n/a Negative - Negative POCT U BLD (test code = 3257) n/a Negative - Negative [facility] H[facility] [id number] 18:13:36 Test Item Value Reference Range Interpretation Comments BETA HCG (test See_Comment [Automated m essage] code = The system [facility] [id number]) generated this result transmit karlos reference range : Non- fe male and male patien ts: <5 mIU/mL. The reference range was not used to interpret this result as normal/abnormal . AMALIA (test code Gestational Age ? ? = AMALIA) ?Range (mIU/mL) 1-10 ?Weeks ?[id number] Weeks ?[id number] Weeks ?[id number] Weeks ?[id number] Biotin has been reported to cause a negative bias, interpret results relative to patient's use of biotin. [facility] METABOLIC PANEL (NA, K, CL, CO2, GLUCOSE, BUN, CREATININE, CA)2022-04-06 16:52:43 Test Item Value Reference Range Interpretation Comments NA (test code = 136 mmol/L 135-145 [id number]) K (test code = 4.1 mmol/L 3.5-5.0 1112224098) CL (test code = 106 mmol/L 98-108 6188953743) CO2 TOTAL (test code 23 mmol/L 23-31 = 7831656860) AGAP (test code = 2-16 6431825497) BUN (test code = 8 mg/dL 7-23 1156228230) GLUCOSE (test code = 101 mg/dL 70-110 0160976389) CREATININE (test code 0.54 mg/dL 0.50-1.04 = 2746951394) CALCIUM (test code = 9.0 mg/dL 8.6-10.6 5463660068) eGFR (test code = mL/min/1.73m2 9909075841) AMALIA (test code = AMALIA) Association of Glomerular Filtration Rate (GFR) and Staging of Kidney Disease* + + +- +| GFR (mL/min/1.73 m2) ?| With Kidney Damage ?| ?Without Kidney Damage+ ------+ ----+ ------+| ?>90 ?| ?Stage one ?| ? Normal ?+ -+ + -+| ?60-89 ?| ?Stage two ?| ? Decreased GFR ? + + +- +| ?30-59 ?| ?Stage three ?| ? Stage three ? + + +- +| ?15-29 ?| ?Stage four ? | ? Stage four ?+ -+ + -+| ?<15 (or dialysis) ? ?| ?Stage five ? | ? Stage five ?+ -+ + -+ *Each stage assumes the associated GFR level has been in effect for at least three months. ?Stages 1 to 5, with or without kidney disease, indicate chronic kidney disease. Notes: Determination of stages one and two (with eGFR >59mL/min/1.73 m2) requires estimation of kidney damage for at least three months as defined by structural or functional abnormalities of the kidney, manifested by either:Pathological abnormalities or Markers of kidney damage (including abnormalities in the composition of the blood or urine or abnormalities in imaging tests). [facility] WITH [id number] 16:34:05 Test Item Value Reference Range Interpretation Comments WBC (test code = See_Comment [Automated 6690-2) message] The sy stem which generated this result transmitted reference range : 4.30 - 11.10 10*3/?L. The reference range was not used to interpret this result as normal/abnormal . RBC (test code = See_Comment L [Automated 789-8) message] The sy stem which generated this result transmitted reference range : 3.93 - 5.25 10*6/?L. The reference range was not used to interpret this result as normal/abnormal . HGB (test code = 9.5 g/dL 11.6-15.0 L 718-7) HCT (test code = 30.1 % 35.7-45.2 L 4544-3) MCV (test code = 76.8 fL 80.6-95.5 L 787-2) MCH (test code = 24.2 pg 25.9-32.8 L 785-6) MCHC (test code = 31.6 g/dL 31.6-35.1 786-4) RDW-SD (test code = 50.4 fL 39.0-49.9 H 41909-2) RDW-CV (test code = 18.1 % 12.0-15.5 H 788-0) PLT (test code = See_Comment [Automated 777-3) message] The sy stem which generated this result transmitted reference range : 166 - 358 10*3/ ?L. The reference r naomy was not used to interpret this result as normal/abnormal . MPV (test code = 9.8 fL 9.5-12.9 27232-7) NRBC/100 WBC (test See_Comment [Automat ed code = [id number]) message] The system which generated this result transmitted reference range : 0.0 - 10.0 /100 WBCs. The refer ence range was not u sed to interpret th is result as normal/abnormal . NRBC x10^3 (test code <0.01 See_Comment [Auto mated = [id number]) message] The s ystem which generated this result transmitted reference range : 10*3/?L. The reference range was not used to interpret this result as normal/abnormal . GRAN MAT (NEUT) % 67.9 % (test code = 770-8) IMM GRAN % (test code 0.40 % = 2517615074) LYMPH % (test code = 21.6 % 736-9) MONO % (test code = 8.9 % 5905-5) EOS % (test code = 0.9 % 713-8) BASO % (test code = 0.3 % 706-2) GRAN MAT x10^3(ANC) 4.75 10*3/uL 1.88-7.09 (test code = 2258920289) IMM GRAN x10^3 (test 0.03 10*3/uL 0.00-0.06 code = 1827143375) LYMPH x10^3 (test code 1.51 10*3/uL 1.32-3.29 = 731-0) MONO x10^3 (test code 0.62 10*3/uL 0.33-0.92 = 742-7) EOS x10^3 (test code = 0.06 10*3/uL 0.03-0.39 711-2) BASO x10^3 (test code <0.03 0.01-0.07 = 704-7) Lab Interpretation Abnormal (test code = 41898-9) [id number] Test Item Value Reference Range Interpretation Comments POCT PREG (test code = 1605) positive On board controls acceptable with present C Line (test code = 3574) POCT PREG LOT # (test code = 3575) [id number] POCT PREG TEST DATE (test 01/17/2023 code = 3576) Lab Interpretation (test code = Normal 14868-7) [facility]"
[2022-04-21 20:44] LABS: Absolute Lymphocytes (CBC) 1.7 K/uL (0.7-4.9); Hematocrit 27.6 % (36.0-45.0); Lymphocytes % 25.2 % (15.3-44.8); MPV 7.2 fL (7.6-11.3)
[2022-04-21 20:45] LABS: Urine Blood 2+ (Negative); Urine Glucose Negative (Negative); Urine Protein Negative (Negative); Urine Specific Gravity 1.015 (1.005-1.030); Urine pH 6.5 (5.0-7.0)
[2022-04-21 21:10] LABS: Potassium 3.5 mmol/L (3.5-5.1)
[2022-04-21 21:20] LABS: Urine Specific Gravity/Preg 1.015 (1.005-1.030)
--- NOTE | 2022-04-21 21:39 | RAD REPORT ---
EXAM DESCRIPTION: US - 1St Trimest Single 1St Fetus - 04/21/2022 9:17 pm CLINICAL HISTORY: with vaginal bleeding COMPARISON: None. FINDINGS: The uterus measures 11 by by 9 centimeters. A normal appearing gestational sac is present within the endometrium. Within this is a yolk sac and pole with a crown-rump length 5.1 centim eters. Cardiac activity 167 beats per minute Left ovary normal in size and echotexture. Right ovary not seen secondary to overlying bowel gas The right and left adnexa are unremarkable No significant free fluid is seen. IMPRESSION: Single live intrauterine with an estimated gestational age 11 weeks 2 days ED D 11/08/2022
--- NOTE | 2022-04-21 22:24 | ER ---
Nurse's Notes [facility] Name: Trish Yung Age: 27 yrs Sex: Female : 1995 Arrival Date: 04/21/2022 Time: 19:36 Bed 4 Private MD: Diagnosis: 11 weeks gestation of ;Threatened ;Anemia, unspecified Presentation: 04/21 20:06 Chief complaint: Patient states: "I started bleeding a couple of hours ago. I am tw5 concerned because when I had my tubes tied 6 years ago I was told that one wasn't done right because it was damaged so if I had any bleeding to come in.". Coronavirus screen: Vaccine status: Patient reports receiving the 1st dose of the Covid vaccine. Moderna. Ebola Screen: Patient negative for fever greater than or equal to 101.5 degrees Fahrenheit, and additional compatible Ebola Virus Disease symptoms Patient denies exposure to infectious person. Patient denies travel to an Ebola-affected area in the 21 days before illness onset. Initial Sepsis Screen: Does the patient meet any 2 criteria? No. Patient's initial sepsis screen is negative. Does the patient have a suspected source of infection? No. Patient's initial sepsis screen is negative. Risk Assessment: Do you want to hurt yourself or someone else? Patient reports no desire to harm self or others. Onset of symptoms is unknown. 20:06 Method Of Arrival: Ambulatory tw5 20:06 Acuity: ADÁN 3 tw5 Triage Assessment: 20:08 General: Appears in no apparent distress. 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 - Social history:: Smoking status: Patient/guardian denies using tobacco, Stopped _ months ago 3. Screenin:07 Abuse screen: Denies threats or abuse. Denies injuries from another. Nutritional as6 screening: No deficits noted. Tuberculosis screening: No symptoms or risk factors identified. Fall Risk None identified. Assessment: 20:07 General: Appears in no apparent distress. Behavior is calm, cooperative. Pain: Denies as6 pain. Neuro: Patrick Agitation-Sedation Scale (RASS): 0 - Alert and Calm Level of Consciousness is awake, alert, obeys commands, Oriented to person, place, time, situation. Cardiovascular: JVD is absent Patient's skin is warm and dry. Respiratory: Respiratory effort is even, unlabored, Respiratory pattern is regular, symmetrical. 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 Vital Signs: 20:06 BP 119 / 100; Pulse 80; Resp 18; Temp 98.5; Pulse Ox 100% ; Weight 83.91 kg; Height 5 tw5 ft. 2 in. (157.48 cm); Pain 0/10; 21:26 BP 114 / 88; Pulse 82; Resp 18 S; Pulse Ox 97% on R/A; as6 22:33 BP 114 / 73; Pulse 77; Resp 18 S; Pulse Ox 100% on R/A; as6 20:06 Body Mass Index 33.84 (83.91 kg, 157.48 cm) tw5 ED Course: 19:36 Patient arrived in ED. as 19:53 Eb Dia DO is Attending Physician. ms3 20:00 Tashi Lopes, WILLIS is Primary Nurse. as6 20:07 Bed in low position. Call light in reach. Side rails up X 1. Pulse ox on. NIBP on. Warm as6 blanket given. 20:08 Triage completed. tw5 20:08 Arm band placed on. tw5 20:38 Inserted saline lock: 20 gauge in right antecubital area, using aseptic technique. as6 Blood collected. 20:38 Quantitative Hcg Sent. as6 20:38 CBC with Diff Sent. as6 20:38 Basic Metabolic Panel Sent. as6 20:38 Abo/rh Typing Sent. as6 21:19 1St Trimest Single 1St Fetus In Process Unspecified. EDMS 22:33 No provider procedures requiring assistance completed. as6 22:38 IV discontinued, intact, bleeding controlled, No redness/swelling at site. Pressure as6 dressing applied. Administered Medications: No medications were administered Medication: 20:08 VIS not applicable for this client. as6 Outcome: 22:23 Discharge ordered by . ms3 22:57 Discharged to home ambulatory. as6 22:57 Condition: stable 22:57 Discharge instructions given to patient, Instructed on discharge instructions, follow up and referral plans. Demonstrated understanding of instructions, follow-up care. 22:57 Patient left the ED. as6 Signatures: Dispatcher [employer] EDAna Perez Marcus, DO DO ms3 Charmaine Graf tw5 Tashi Lopes, RN RN as6
--- NOTE | 2022-04-21 22:25 | EDPHYS ---
Physician Documentation [facility] Name: Trish Yung Age: 27 yrs Sex: Female : 1995 Arrival Date: 04/21/2022 Time: 19:36 Bed 4 Private MD: ED Physician Eb Dia HPI: 04/21 20:20 This 27 yrs old Black Female presents to ER via Ambulatory with complaints of Vaginal ms3 Discharge - 12 wks preg. 20:20 The patient presents with vaginal bleeding that is light. Onset: The symptoms/episode ms3 began/occurred 2 hour(s) ago. Modifying factors: The symptoms are alleviated by nothing, the symptoms are aggravated by nothing. Associated signs and symptoms: Pertinent negatives: cramping, dysuria, fever, urinary frequency, vomiting. Severity of symptoms: At their worst the symptoms were mild, in the emergency department the symptoms are unchanged. 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 - Social history:: Smoking status: Patient/guardian denies using tobacco, Stopped _ months ago 3. ROS: 20:20 Constitutional: Negative for fever, and chills. Neck: Negative for injury, pain, and ms3 swelling, Cardiovascular: Negative for chest pain, and palpitations. Respiratory: Negative for shortness of breath, cough, wheezing, and pleuritic chest pain, Abdomen/GI: Negative for abdominal pain, nausea, vomiting, diarrhea, and constipation, Back: Negative for injury and pain, Skin: Negative for injury, rash, and discoloration, Psych: Negative for depression, anxiety, suicide ideation, homicidal ideation, and hallucinations. 20:20 : Positive for vaginal bleeding. 20:20 All other systems are negative. Exam: 20:20 Constitutional: This is a well developed, well nourished patient who is awake, alert, ms3 and in no acute distress. Head/Face: Normocephalic, atraumatic. ENT: Nares patent. No nasal discharge, no septal abnormalities noted. Tympanic membranes are normal and external auditory canals are clear. Oropharynx with no redness, swelling, or masses, exudates, or evidence of obstruction, uvula midline. Mucous membranes moist. Chest/axilla: Normal chest wall appearance and motion. Nontender with no deformity. Cardiovascular: Regular rate and rhythm with a normal S1 and S2. No gallops, murmurs, or rubs. Normal PMI, no JVD. No pulse deficits. Respiratory: Lungs have equal breath sounds bilaterally, clear to auscultation and percussion. No rales, rhonchi or wheezes noted. No increased work of breathing, no retractions or nasal flaring. Abdomen/GI: Soft, non-tender, with normal bowel sounds. No distension or tympany. No guarding or rebound. No evidence of tenderness throughout. Skin: Warm, dry with normal turgor. Normal color with no rashes, no lesions, and no evidence of cellulitis. MS/ Extremity: Pulses equal, no cyanosis. Neurovascular intact. Full, normal range of motion. Psych: Awake, alert, with orientation to person, place and time. Behavior, mood, and affect are within normal limits. Vital Signs: 20:06 BP 119 / 100; Pulse 80; Resp 18; Temp 98.5; Pulse Ox 100% ; Weight 83.91 kg; Height 5 tw5 ft. 2 in. (157.48 cm); Pain 0/10; 21:26 BP 114 / 88; Pulse 82; Resp 18 S; Pulse Ox 97% on R/A; as6 22:33 BP 114 / 73; Pulse 77; Resp 18 S; Pulse Ox 100% on R/A; as6 20:06 Body Mass Index 33.84 (83.91 kg, 157.48 cm) tw5 MDM: 20:19 Patient medically screened. ms3 20:20 Differential diagnosis: threatened Ab, placenta previa. ms3 22:23 Data reviewed: vital signs, nurses notes, lab test result(s), radiologic studies. ms3 Counseling: I had a detailed discussion with the patient and/or guardian regarding: the historical points, exam findings, and any diagnostic results supporting the discharge/admit diagnosis, lab results, radiology results, the need for outpatient follow up, to return to the emergency department if symptoms worsen or persist or if there are any questions or concerns that arise at home. ED course: Discussed US, labs, physical exam findings with patient. Patient to follow-up withher OB in 2 to 3 days. Patient understands and agrees with plan. All questions were answered. Return precautions discussed include worsening symptoms, or any other concerns. On reevaluation patient symptoms improved, patient is alert and oriented x4, no apparent distress, nontoxic, ambulatory in emergency department.. 04/21 20:20 Order name: Abo/rh Typing; Complete Time: 21:27 ms3 04/21 20:20 Order name: Basic Metabolic Panel; Complete Time: 21:27 ms3 04/21 20:20 Order name: CBC with Diff; Complete Time: 21:27 ms3 04/21 20:20 Order name: Quantitative Hcg; Complete Time: 21:27 ms3 04/21 20:45 Order name: Urine --Ancillary (enter results); Complete Time: 21:27 mw2 04/21 20:45 Order name: Urine Dipstick-Ancillary; Complete Time: 21:27 EDMS 04/21 20:20 Order name: IV Saline Lock; Complete Time: 20:37 ms3 04/21 20:20 Order name: Labs collected and sent; Complete Time: 20:38 ms3 04/21 20:20 Order name: NPO; Complete Time: 20:23 ms3 04/21 20:20 Order name: Urine Dipstick-Ancillary (obtain specimen); Complete Time: 20:45 ms3 04/21 21:19 Order name: 1St Trimest Single 1St Fetus; Complete Time: 22:19 EDMS Administered Medications: No medications were administered Disposition Summary: 04/21/22 22:23 Discharge Ordered Location: Home ms3 Condition: Stable ms3 Diagnosis - 11 weeks gestation of ms3 - Threatened ms3 - Anemia, unspecified ms3 Followup: ms3 - With: Private Physician - When: 2 - 3 days - Reason: Re-evaluation by your physician Discharge Instructions: - Discharge Summary Sheet ms3 - Anemia ms3 - and Anemia ms3 - Threatened Miscarriage ms3 Forms: - Medication Reconciliation Form ms3 - Thank You Letter ms3 - Antibiotic Education ms3 - Prescription Opioid Use ms3 Signatures: Dispatcher [employer] EDMS Eb Dia DO DO ms3 Charmaine Graf tw5 Corrections: (The following items were deleted from the chart) : 20:21 Transvaginal Ob+US.RAD.BRZ ordered. EDMS EDMS
[2022-04-21 23:28] VITALS: TEMP 98.5
[2022-04-21 23:31] VITALS: BP 114/73; O2SAT 100
== END 2022-04-21 22:57 | disposition home or self-care (01) ==
LOC: ER 19:34
DX: O20.0 Threatened abortion (principal); O99.011 Anemia complicating pregnancy, first trimester; Z3A.11 11 weeks gestation of pregnancy
CPT/HCPCS: 36415; 76801; 80048; 81003; 81025; 84702; 85025; 86900; 86901; 99284

== ENCOUNTER 2025-03-22 16:57 | Emergency (ER) | payer OTHER, SELFPAY ==
--- OUTSIDE RECORDS SUMMARY | 2025-03-22 17:04 | XMS REPORT | Continuity of Care Document ---
Author Name Unknown Address [address] [address] [place] [address] [facility] [place] Address [address] [place] [address] Care Team Providers Care Catalyst Operator Name Role Phone PCP, PATIENT DOES NOT HAVE A Primary Care Physic linda Unavailable Kristine Mcgraw Attending Clinician [phone] KRISTINE WEBBER Attending Clinician Unavailable [facility] Cprit Obgyleslie Attending Clini shila Unavailable Vanessa Rachel Attending Clinician + VANESSA RAMIREZ Attending Clinician Unavail able [facility] Rgv Cprit Oboliverio Attending Clini shila Unavailable NEVA NEELY Attending Clinician UnavailIVETH Head Attending Clinician Unavailable Neva Neely CNM Attending Clinician CALLY CALDERON Attending Clinician UnavailCALLY Nascimento Attending Clinician Unavailsisi herrera Doctor Unassigned, [place] Attending Clinician U Iveth Arrington MD Attending Clinician [phone] Pob, [facility] Main Attending Clinician Unavailabl e 2, [facility] Attending Clinician Unavailable Quincy Mera MD Attending Clinician [phone] QUINCY MERA Attending Clinician Unavailable 5, [facility] Room Attending Clinician Unavailsisi Biggs MD, Edita Acevedo Attending Clinician + EDITA BIGGS Attending Clinician Unav ailable JAY BERNARD Attending Clinician Unavailable Bernard DYE RANGE TENDER, Jay Attending Clinician [phone] Akinsipe WHCNP, Vanessa C Attending Clinician + NEGRO PONCE Attending Clinician Unavailab lawrence Ponce DYE RANGE TENDER, Negro Montiel Attending Clinician [phone] BLAKE HUIZAR Attending Clinician Unavailbernardino Huizar DYE RANGE TENDER, Blake Landry Attending Clinician [phone] Marley Ronquillo LVN Attending Clinician [phone] Cherelle Graves Attending Clinician [phone] Aliyah Farfan MD Attending Clinician [phone] LAURA PLATA Attending Clinician Unavail able Iveth Loera MD Admitting Clinician [phone] IVETH LOERA Admitting Clinician Unavailable JAY BERNARD Admitting Clinician Unavailable Naheed VARGAS, Aliyah Admitting Clinician [phone] Payers Payer Name Policy Type Policy Number Effective Date Expirati on Date Source [place] [employer] [id number] 2022 00:00:00 2024 00:00:00 MEDICAID PENDING PENDING 2022 00:00:00 Problems Condition Name Condition Details Condition Category Status Onset Date Resolution Date Last Treatment Date Treating Clinician Comments Source Need for HPV vaccinatio n Need for HPV vaccinatio n Disease Active 01-08 00:00: 00 [facility] Obesity (BMI 30-39.9) Obesity (BMI 30-39.9) Disease Active 01-08 00:00: 00 [facility] 34 weeks gestation of 34 weeks gestation of Disease Active 2021-11 00:00: 00 Overview: Formattin g of this note might be different from the original. Added automatic ally from request for surgery [id number] [facility] Anemia during in third trimester Anemia during in third trimester Disease Active 5-06 00:00: 00 [facility] Elevated blood pressure reading without diagnosis of hypertensi on Elevated blood pressure reading without diagnosis of hypertensi on Disease Active 5-05 00:00: 00 [facility] Parapharyn geal space abscess Parapharyn geal space abscess Disease Active 2020-11 0-05 00:00: 00 [facility] History of bilateral tubal ligation History of bilateral tubal ligation Disease Resolve d 2017-11 0-22 00:00: 00 2024-10-14 00:00:00 2024-10-14 15:01:06 Overview: Formattin g of this note might be different from the original. Only left per note 6 [facility] with history of section, antepartum with history of section, antepartum Disease Resolve d 2021-11 2-08 00:00: 00 2022-11-23 00:00:00 2022-11-23 15:02:16 [facility] Liveborn infant, of [place] , born in hospital by delivery Liveborn infant, of [place] , born in hospital by delivery Disease Resolve d 2021-11 2-08 00:00: 00 2022-11-23 00:00:00 2022-11-23 15:02:22 [facility] 39 weeks gestation of 39 weeks gestation of Disease Resolve d 2021-11 1-09 00:00: 00 2022-11-23 00:00:00 2022-11-23 15:02:59 Overview: Formattin g of this note might be different from the original. Added automatic ally from request for surgery [id number] [facility] High-risk in third trimester High-risk in third trimester Disease Resolve d 2021-0 5-27 00:00: 00 2022-11-23 00:00:00 2022-11-23 15:02:33 [facility] Anemia during in third trimester Anemia during in third trimester Disease Resolve d 2021-0 5-06 00:00: 00 2022-11-23 00:00:00 2022-11-23 15:02:54 [facility] Multiparit y Multiparit y Disease Resolve d 0 5-05 00:00: 00 2022-11-23 00:00:00 2022-11-23 15:00:21 [facility] Previous section complicati ng Previous section complicati ng Disease Resolve d 0 5-05 00:00: 00 2022-11-23 00:00:00 2022-11-23 15:00:30 Overview: Formattin g of this note might be different from the original. x3 [facility] Chlamydia trachomati s infection of lower genitourin moody sites Chlamydia trachomati s infection of lower genitourin moody sites Disease Resolve d 2018-0 3-19 00:00: 00 2022-11-23 00:00:00 2022-11-23 15:02:52 Overview: Formattin g of this note might be different from the original. EDWAR in 3 months [facility] Obesity in , antepartum Obesity in , antepartum Disease Resolve d 2016-0 3-28 00:00: 00 2022-11-23 00:00:00 2022-11-23 15:00:17 [facility] BV (bacterial vaginosis) BV (bacterial vaginosis) Disease Resolve d 2018-0 3-18 00:00: 00 2022-04-15 00:00:00 2022-04-15 16:50:24 [facility] Routine screening for STI (sexually transmitte d infection) Routine screening for STI (sexually transmitte d infection) Disease Resolve d 2017-11 0-22 00:00: 00 2022-03-24 00:00:00 2022-03-24 09:29:54 [facility] Anemia Anemia Disease Resolve d 4-21 00:00: 00 2018-09-10 00:00:00 2018-09-10 11:18:48 [facility] H/O section complicati ng H/O section complicati ng Disease Resolve d 4-20 00:00: 00 2018-09-10 00:00:00 2018-09-10 11:18:44 [facility] 39 weeks gestation of 39 weeks gestation of Disease Resolve d 2015-0 4-20 00:00: 00 2018-09-10 00:00:00 2018-09-10 11:18:49 [facility] Benign gestationa l thrombocyt openia in first trimester Benign gestationa l thrombocyt openia in first trimester Disease Resolve d 2014-11 0 00:00: 00 2018-09-10 00:00:00 2022-06-05 00:38:00 [facility] Grand multiparit y, antepartum , unspecifie d trimester Grand multiparit y, antepartum , unspecifie d trimester Disease Resolve d 07-31 00:00: 00 2018-09-10 00:00:00 2018-09-10 11:18:45 [facility] Previous delivery, antepartum condition or complicati on Previous delivery, antepartum condition or complicati on Disease Resolve d 07-31 00:00: 00 2018-09-10 00:00:00 2018-09-10 11:18:37 [facility] Trichomona l vulvovagin itis Trichomona l vulvovagin itis Disease Resolve d 08-12 00:00: 00 2015-09-29 00:00:00 2022-06-05 00:37:45 [facility] Other general counseling and advice for contracept alondra management Other general counseling and advice for contracept alondra management Disease Resolve d - 00:00: 00 2015-07-31 00:00:00 2015-07-31 10:44:08 [facility] Tobacco use disorder Tobacco use disorder Disease Resolve d 3- 00:00: 00 2015-07-31 00:00:00 2015-07-31 11:16:48 [facility] Manic depression Manic depression Disease Resolve d 5-14 00:00: 00 2015-07-31 00:00:00 2015-07-31 11:16:53 [facility] Gonorrhea of lower genitourin [place] tract Gonorrhea of lower genitourin moody tract Disease Resolve d 06-11 00:00: 00 2015-01-18 00:00:00 2015-01-18 19:15:58 [facility] Chlamydia trachomati s infection of lower genitourin moody sites Chlamydia trachomati s infection of lower genitourin moody sites Disease Resolve d 06-11 00:00: 00 2015-01-18 00:00:00 2015-01-18 19:16:04 [facility] Depo-Prove ra contracept alondra status Depo-Prove ra contracept alondra status Disease Resolve d 2012-11 00:00: 00 2015-01-18 00:00:00 2015-01-18 19:16:02 [facility] Generalize d anxiety disorder Generalize d anxiety disorder Disease Resolve d 04-02 00:00: 00 2015-01-18 00:00:00 2015-01-18 19:16:00 [facility] Immune to rubella Immune to rubella Disease Resolve d 04-02 00:00: 00 2015-01-18 00:00:00 2015-01-18 19:15:56 [facility] Immune to varicella Immune to varicella Disease Resolve d - 00:00: 00 2015-01-18 00:00:00 2015-01-18 19:15:54 [facility] delivery delivered delivery delivered Disease Resolve d 9-12 00:00: 00 2014-06-10 00:00:00 2014-06-10 14:15:01 [facility] Antepartum anemia Antepartum anemia Disease Resolve d 05-20 00:00: 00 2014-06-10 00:00:00 2022-06-05 00:25:17 [facility] Sinusitis, chronic Sinusitis, chronic Disease Resolve d 6-28 00:00: 00 2013-08-29 00:00:00 2022-06-05 00:25:16 [facility] Chlamydia trachomati s infection of lower genitourin moody sites Chlamydia trachomati s infection of lower genitourin moody sites Disease Resolve d 04-04 00:00: 00 2013-08-29 00:00:00 2022-06-05 00:24:34 [facility] High-risk High-risk Disease Resolve d 04-02 00:00: 00 2013-08-29 00:00:00 2022-06-05 00:24:31 [facility] Tobacco use disorder Tobacco use disorder Disease Resolve d 04-02 00:00: 00 2013-08-29 00:00:00 2022-06-05 00:24:31 [facility] H/O: H/O: Disease Resolve d 04-02 00:00: 00 2013-08-29 00:00:00 2022-06-05 00:24:31 [facility] Irregular menstrual cycle Irregular menstrual cycle Disease Resolve d 04-02 00:00: 00 2013-08-29 00:00:00 2013-08-29 11:54:41 [facility] BV (bacterial vaginosis) BV (bacterial vaginosis) Disease Resolve d 04-02 00:00: 00 2013-08-29 00:00:00 2013-08-29 11:54:43 [facility] Uterine size-date discrepanc y, antepartum Uterine size-date discrepanc y, antepartum Disease Resolve d 04-02 00:00: 00 2013-08-29 00:00:00 2013-08-29 11:54:46 [facility] Late care Late care Disease Resolve d 04-02 00:00: 00 2013-08-29 00:00:00 2013-08-29 11:54:48 [facility] Teen Teen Disease Resolve d 2009-11 00:00: 00 2013-08-29 00:00:00 2013-08-29 11:54:35 [facility] Hyperemesi s gravidarum with metabolic disturbanc e, antepartum Hyperemesi s gravidarum with metabolic disturbanc e, antepartum Disease Resolve d 04-02 00:00: 00 2013-04-02 00:00:00 2013-04-02 18:59:21 [facility] delivery delivered delivery delivered Disease Resolve d 2009-11 00:00: 00 2013-04-02 00:00:00 2022-06-05 00:17:49 [facility] Rash Rash Disease Resolve d 2009-11 00:00: 00 2013-04-02 00:00:00 2013-04-02 15:20:53 [facility] Antepartum anemia Antepartum anemia Disease Resolve d 2009-11 00:00: 00 2013-04-02 00:00:00 2022-06-05 00:17:48 [facility] Thrombocyt openia Thrombocyt openia Disease Resolve d 2009-11 00:00: 00 2013-04-02 00:00:00 2022-06-05 00:17:48 [facility] Status post induction of labor Status post induction of labor Disease Resolve d 2009-11 00:00: 00 2010-10-01 00:00:00 2022-06-05 00:17:48 [facility] Supervisio n of normal first Supervisio n of normal first Disease Resolve d 2009-11 00:00: 00 2010-10-01 00:00:00 [facility] Allergies, Adverse Reactions, Alerts Allergy Name Allergy Type Status Severity Reaction(s) Onset Date Inactive Date Treating Clinician Comments Source NO KNOWN ALLERGIE S Drug Class Active [facility] Social History Social Habit Start Date Stop Date Quantity Comments Source ASSERTION 2022-02-10 00:00:00 [facility] Alcoholic beverage intake 2025-02-13 00:00:00 2025-02-13 00:00:00 Current drinker of alcohol (finding) [facility] History of Social function 2024-10-11 00:00:00 2024-10-11 00:00:00 [facility] Tobacco use and exposure 2024-10-11 00:00:00 2024-10-11 00:00:00 Former smokeless tobacco user [facility] Alcohol intake 2024-01-08 00:00:00 2024-01-08 00:00:00 Ex-drinker (finding) [facility] Exposure to SARS-CoV-2 (event) 2022-11-13 00:00:00 2022-11-23 13:55:00 Not sure [facility] Cigarettes smoked current (pack per day) - Reported 2022-07-15 00:00:00 2022-07-15 00:00:00 [facility] Tobacco Comment 2022-07-15 00:00:00 2022-07-15 00:00:00 quit when she found out she was [facility] History of tobacco use 2022-02-18 00:00:00 Cigarette Smoker [facility] History SDOH Alcohol Frequency 2020-12-04 00:00:00 2020-12-04 00:00:00 99 [facility] History SDOH Alcohol Std Drinks 2020-12-04 00:00:00 2020-12-04 00:00:00 99 [facility] History SDOH Alcohol Binge 2020-12-04 00:00:00 2020-12-04 00:00:00 99 [facility] Alcohol Comment 2020-12-04 00:00:00 2020-12-04 00:00:00 social [facility] Sex assigned at 1995 00:00:00 1995 00:00:00 [facility] Smoking Status Start Date Stop Date Source Unknown if ever smoked [facility] Ex-smoker 2024-10-11 00:00:00 2024-10-11 00:00[facility]00 [facility] Medications Ordered Medication Name Filled Medication Name Start Date Stop Date Current Medication? Ordering Clinician Indication Dosage Frequency Signature (SIG) Comments Components Source fluconazole 150 mg tablet 02-13 00:00: 00 02-14 04:59 :00 Yes [id number] 150mg Take 1 tablet by mouth once now for 1 dose. [facility] 500 mg tablet 2023-11 00:00: 00 02-11 00:00 :00 No [id number] 500mg Take 1 tablet by mouth every 12 (twelve) hours. [facility] fluconazole 150 mg tablet 2023-11 00:00: 00 10-12 05:59 :00 No [id number] 150mg Take 1 tablet by mouth once now for 1 dose. [facility] medroxyPROG ESTERone (DEPO-PROVE RA) syringe 150 mg 01-08 17:15: 00 02-11 13:58 :27 No [id number] 150mg [facility] PNV no.95/rubina us fum/folic ac ( ORAL) 01-08 10:59: 22 01-08 00:00 :00 No Take by mouth. [facility] Multivitami ns with Fluoride (MULTI-HUEY MIN ORAL) 01-08 10:52: 41 Yes Take by mouth. [facility] PNV no.95/rubina us fum/folic ac ( ORAL) 08-08 11:15: 59 Yes Take by mouth. [facility] metroNIDAZO LE 500 mg tablet 08-08 00:00: 00 08-16 04:59 :00 No [id number] 500mg Take 1 tablet by mouth every 12 (twelve) hours for 7 days. [facility] terconazole 80 mg vaginal suppository 08-08 00:00: 00 08-12 04:59 :00 No [id number] 80mg Insert 1 Suppositor y into vagina at bedtime for 3 days. [facility] PNV no.95/rubina us fum/folic ac ( ORAL) 2021-11 19:33: 31 Yes Take by mouth. [facility] ibuprofen (IBU) tablet 800 mg 2021-11 17:00: 00 Yes 800mg 800 mg, Oral, Q8H, First dose on Mon10/28/22 at 1100, Until Discontinu ed, Routine [facility] acetaminoph en (TYLENOL) tablet 650 mg 2021-11 06:00: 00 Yes 650mg 650 mg, Oral, Q6H, First dose on Mon10/28/22 at 0000, Until Discontinu ed, Routine [facility] HYDROcodone -acetaminop hen (NORCO 5) 5-325 mg tablet 2 tablet 2021-11 04:53: 49 Yes 2{tbl} 2 tablet, Oral, Q6HPRN, Starting on Mon10/27/22 at 2253, Until Discontinu ed, Routine, Pain (scale 7-10), Alternate with Ibuprofen [facility] HYDROcodone -acetaminop hen (NORCO 5) 5-325 mg tablet 1 tablet 2021-11 04:53: 42 Yes 1{tbl} 1 tablet, Oral, Q6HPRN, Starting on Mon10/27/22 at 2253, Until Discontinu ed, Routine, Pain (scale 4-6), Alternate with Ibuprofen [facility] ferrous sulfate 325 mg (65 mg iron) tablet 2021-11 00:00: 00 02-11 00:00 :00 No [id number] 325mg Take 1 tablet by mouth in the morning and 1 tablet in the evening. [facility] ibuprofen 800 mg tablet 2021-11 00:00: 00 01-08 00:00 :00 No [id number] 800mg Take 1 tablet by mouth every 8 (eight) hours. [facility] gabapentin 300 mg capsule 2021-11 00:00: 00 01-08 00:00 :00 No [id number] 300mg Take 1 capsule by mouth in the morning and 1 capsule at noon and 1 capsule in the evening. [facility] docusate 100 mg capsule 2021-11 00:00: 00 01-08 00:00 :00 No [id number] 200mg Take 2 capsules by mouth once daily as needed for Constipati on. [facility] HYDROcodone -acetaminop hen 5-325 mg tablet 2021-11 00:00: 00 11-05 05:59 :00 No [id number] 1{tbl} Take 1 tablet by mouth every 6 (six) hours as needed for Pain (scale 4-6) (Alternate with Ibuprofen) for up to 7 days. Indication s: acute pain [facility] acetaminoph en ADULT (OFIRMEV) injection 1,000 mg 2021-11 21:00: 00 10-27 20:39 :00 No 1000mg 1,000 mg, IV Infusion, at 400 mL/hr Administer over 15 Minutes, ONCE, 1 dose, On Alice 10/27/22 at 1500, Routine
Indicatio n: Perioperat alondra Patient [facility] ketorolac (TORADOL) injection 30 mg 2021-11 18:00: 00 10-28 17:59 :00 No 30mg 30 mg, Slow IV Push, Q6H, 4 doses, First dose on Alice 10/27/22 at 1200, Last dose on Mon10/28/22 at 0600, Routine [facility] methylene blue (antidote) (PROVAYBLUE ) injection 0.2 mL 2021-11 17:00: 00 10-27 16:19 :00 No 1mg 0.2 mL (1 mg), Irrigation , ONCE, 1 dose, On Alice 10/27/22 at 1100, Routine [facility] lactated ringers IV infusion 1,000 mL 2021-11 16:30: 00 10-27 18:15 :00 No 1000mL at 125 mL/hr, 1,000 mL, IV Infusion, ONCE, 1 dose, On Alice 10/27/22 at 1030, Routine [facility] diphenhydrA MINE (BENADRYL) injection 25 mg 2021-11 15:42: 04 Yes 25mg 25 mg, Slow IV Push, Q6HPRN, Starting on Alice 10/27/22 at 0942, Until Discontinu ed, Routine, Itching [facility] diphenhydrA MINE (BENADRYL) tablet 25 mg 2021-11 15:42: 04 Yes 25mg 25 mg, Oral, Q6HPRN, Starting on Alice 10/27/22 at 0942, Until Discontinu ed, Routine, Sleep, Itching [facility] ondansetron (ZOFRAN (PF)) injection 4 mg 2021-11 15:42: 03 Yes 4mg 4 mg, Slow IV Push, Q8HPRN, Starting on Alice 10/27/22 at 0942, Until Discontinu ed, Routine, Nausea and Vomiting (N/V) [facility] bisacodyL (DULCOLAX) suppository 10 mg 2021-11 15:42: 03 Yes 10mg 10 mg, Rectal, QDAILYPRN, Starting on Alice 10/27/22 at 0942, Until Discontinu ed, Routine, Constipati on [facility] simethicone (GAS RELIEF (SIMETHICON E)) chewable tablet 160 mg 2021-11 15:42: 03 Yes 160mg 160 mg, Oral, PC+HSPRN, Starting on Alice 10/27/22 at 0942, Until Discontinu ed, Routine, Gas [facility] docusate (COLACE) capsule 200 mg 2021-11 15:42: 03 Yes 200mg 200 mg, Oral, QDAILYPRN, Starting on Mon10/27/22 at 0942, Until Discontinu ed, Routine, Constipati on [facility] magnesium hydroxide (MILK OF MAGNESIA) 400 mg/5 mL suspension 30 mL 2021-11 15:42: 03 Yes 30mL 30 mL, Oral, QDAILYPRN, Starting on Alice 10/27/22 at 0942, Until Discontinu ed, Routine, Constipati on [facility] lactated ringers IV infusion 1,000 mL 2021-11 15:42: 03 Yes 1000mL at 125 mL/hr, 1,000 mL, IV Infusion, PRN, 1 dose, Starting on Alice 10/27/22 at 0942, Until Discontinu ed, Routine [facility] sodium chloride 0.9 % irrigation solution 2021-11 15:02: 00 Yes PRN, Starting on Mon10/27/22 at 0902, Until Discontinu ed, Intra-op [facility] lactated ringers IV infusion 1,000 mL 2021-11 12:00: 00 10-27 15:47 :18 No 1000mL at 125 mL/hr, 1,000 mL, IV Infusion, CONTINUOUS , Starting on Alice 10/27/22 at 0600, Until Alice 10/27/22 at 0947, Routine [facility] lactated ringers IV infusion 500 mL 2021-11 12:00: 00 10-27 13:49 :00 No 500mL at 999 mL/hr, 500 mL, IV Infusion, ONCE, 1 dose, On Alice 10/27/22 at 0600, Routine [facility] sodium citrate-cit giulia acid (BICITRA) 500-334 mg/5 mL solution 30 mL 2021-11 11:55: 41 10-27 13:48 :00 No 30mL 30 mL, Oral, PRE-PROCED URE ONCE, 1 dose, Starting on Mon10/27/22 at 0555, Until Alice 10/27/22 at 0748, Routine, Surgery/Pr ocedure [facility] PNV no.95/rubina us fum/folic ac ( ORAL) 2021-11 05:50: 54 Yes Take by mouth. [facility] ferrous sulfate 325 mg (65 mg iron) tablet 2021-11 0 00:00: 00 10-28 00:00 :00 No [id number] 325mg Take 1 tablet by mouth in the morning and 1 tablet in the evening. [facility] ascorbic acid, vitamin C, 500 mg tablet 2021-11 0 00:00: 00 10-28 00:00 :00 No [id number] 500mg Take 1 tablet by mouth in the morning and 1 tablet in the evening. [facility] terconazole 80 mg vaginal suppository 6- 00:00: 00 05-21 04:59 :00 No [id number] 80mg Insert 1 Suppositor y into vagina at bedtime for 3 days. [facility] PNV no.95/rubina us fum/folic ac ( ORAL) 5-27 14:27: 13 Yes Take by mouth. [facility] polycarboph il (FIBERCON) 625 mg tablet 04-15 00:00: 00 08-12 00:00 :00 No [id number] 625mg Take 1 tablet by mouth daily. [facility] ascorbic acid, vitamin C, 500 mg tablet 03-25 00:00: 00 09-15 00:00 :00 No [id number] 500mg Take 1 tablet by mouth 3 (three) times daily. [facility] ferrous sulfate 325 mg (65 mg iron) tablet 03-25 00:00: 00 09-15 00:00 :00 No [id number] 325mg Take 1 tablet by mouth 2 (two) times daily. [facility] proMETHazin e 25 mg tablet 03-24 00:00: 00 08-12 00:00 :00 No [id number] 25mg Take 1 tablet by mouth every 6 (six) hours as needed for Nausea and Vomiting (N/V). [facility] Immunizations Ordered Immunization Name Filled Immunization Name Date Status Comments Source HPV9 2025-02-11 00:00:00 Completed Influenza, split virus, trivalent, PF (AFLURIA/FLUARIX/FL ULAVAL/FLUZONE) 2024-10-11 00:00:00 Completed [facility] HPV9 2024-08-27 00:00:00 Completed Influenza Virus Vaccine 2024-06-18 00:00:00 Completed [facility] Rubella 2024-06-18 00:00:00 Completed [facility] TD, NOS 2024-06-18 00:00:00 Completed [facility] Varicella (varivax)(chicken pox) 2024-06-18 00:00:00 Completed [facility] TDAP 2024-06-18 00:00:00 Completed [facility] Influenza Virus Vaccine Quad IM 3+ YRS 2024-06-18 00:00:00 Completed [facility] Influenza Virus Vaccine Quad IM, Preserv and ABX Free 6 MO-64 YRS (FLUCELVAX) 2024-06-18 00:00:00 Completed [facility] SARS-COV-2 COVID-19 PFIZER VACCINE 2024-06-18 00:00:00 Completed [facility] HPV9 2024-06-18 00:00:00 Completed [facility] Influenza Virus Vaccine 2024-01-08 11:00:00 Completed [facility] Rubella 2024-01-08 11:00:00 Completed [facility] TD, NOS 2024-01-08 11:00:00 Completed [facility] Varicella (varivax)(chicken pox) 2024-01-08 11:00:00 Completed [facility] Influenza Virus Vaccine Quad IM, Preserv and ABX Free 6 MO-64 YRS (FLUCELVAX) 2024-01-08 11:00:00 Completed [facility] SARS-COV-2 COVID-19 PFIZER VACCINE 2024-01-08 11:00:00 Completed [facility] HPV9 2024-01-08 11:00:00 Completed [facility] TDAP 2024-01-08 11:00:00 Completed [facility] Influenza Virus Vaccine Quad IM 3+ YRS 2024-01-08 11:00:00 Completed [facility] Influenza Virus Vaccine Quad IM, Preserv and ABX Free 6 MO-64 YRS 2022-09-13 00:00:00 Completed [facility] Influenza Virus Vaccine Quad IM, Preserv and ABX Free 6 MO-64 YRS 2022-09-13 00:00:00 Completed [facility] Influenza Virus Vaccine Quad IM, Preserv and ABX Free 6 MO-64 YRS 2022-09-13 00:00:00 Completed [facility] Influenza Virus Vaccine Quad IM, Preserv and ABX Free 6 MO-64 YRS 2022-09-13 00:00:00 Completed [facility] Influenza Virus Vaccine Quad IM, Preserv and ABX Free 6 MO-64 YRS 2022-09-13 00:00:00 Completed [facility] Influenza Virus Vaccine Quad IM, Preserv and ABX Free 6 MO-64 YRS 2022-09-13 00:00:00 Completed [facility] Influenza Virus Vaccine Quad IM, Preserv and ABX Free 6 MO-64 YRS 2022-09-13 00:00:00 Completed [facility] Influenza Virus Vaccine Quad IM, Preserv and ABX Free 6 MO-64 YRS 2022-09-13 00:00:00 Completed [facility] Influenza Virus Vaccine Quad IM, Preserv and ABX Free 6 MO-64 YRS 2022-09-13 00:00:00 Completed [facility] Influenza Virus Vaccine Quad IM, Preserv and ABX Free 6 MO-64 YRS 2022-09-13 00:00:00 Completed [facility] Influenza Virus Vaccine Quad IM, Preserv and ABX Free 6 MO-64 YRS 2022-09-13 00:00:00 Completed [facility] Influenza Virus Vaccine Quad IM, Preserv and ABX Free 6 MO-64 YRS 2022-09-13 00:00:00 Completed [facility] Influenza Virus Vaccine Quad IM, Preserv and ABX Free 6 MO-64 YRS 2022-09-13 00:00:00 Completed [facility] Influenza Virus Vaccine Quad IM, Preserv and ABX Free 6 MO-64 YRS 2022-09-13 00:00:00 Completed [facility] Influenza Virus Vaccine Quad IM, Preserv and ABX Free 6 MO-64 YRS (FLUCELVAX) 2022-09-13 00:00:00 Completed [facility] Influenza Virus Vaccine Quad IM, Preserv and ABX Free 6 MO-64 YRS (FLUCELVAX) 2022-09-13 00:00:00 Completed [facility] Influenza Virus Vaccine Quad IM, Preserv and ABX Free 6 MO-64 YRS 2022-09-13 00:00:00 Completed [facility] Influenza Virus Vaccine Quad IM, Preserv and ABX Free 6 MO-64 YRS 2022-09-13 00:00:00 Completed [facility] Influenza Virus Vaccine Quad IM, Preserv and ABX Free 6 MO-64 YRS 2022-09-13 00:00:00 Completed [facility] Influenza Virus Vaccine Quad IM, Preserv and ABX Free 6 MO-64 YRS 2022-09-13 00:00:00 Completed [facility] Influenza Virus Vaccine Quad IM, Preserv and ABX Free 6 MO-64 YRS 2022-09-13 00:00:00 Completed [facility] TDAP 2022-08-12 00:00:00 Completed [facility] TDAP 2022-08-12 00:00:00 Completed [facility] TDAP 2022-08-12 00:00:00 Completed [facility] TDAP 2022-08-12 00:00:00 Completed [facility] TDAP 2022-08-12 00:00:00 Completed [facility] TDAP 2022-08-12 00:00:00 Completed [facility] TDAP 2022-08-12 00:00:00 Completed [facility] TDAP 2022-08-12 00:00:00 Completed [facility] TDAP 2022-08-12 00:00:00 Completed [facility] TDAP 2022-08-12 00:00:00 Completed [facility] TDAP 2022-08-12 00:00:00 Completed [facility] TDAP 2022-08-12 00:00:00 Completed [facility] TDAP 2022-08-12 00:00:00 Completed [facility] TDAP 2022-08-12 00:00:00 Completed [facility] TDAP 2022-08-12 00:00:00 Completed [facility] TDAP 2022-08-12 00:00:00 Completed [facility] TDAP 2022-08-12 00:00:00 Completed [facility] TDAP 2022-08-12 00:00:00 Completed [facility] TDAP 2022-08-12 00:00:00 Completed [facility] TDAP 2022-08-12 00:00:00 Completed [facility] TDAP 2022-08-12 00:00:00 Completed [facility] TDAP 2022-08-12 00:00:00 Completed [facility] TDAP 2022-08-12 00:00:00 Completed [facility] TDAP 2022-08-12 00:00:00 Completed [facility] TDAP 2022-08-12 00:00:00 Completed [facility] TDAP 2022-08-12 00:00:00 Completed [facility] Influenza Virus Vaccine 2022-04-15 00:00:00 Completed [facility] Rubella 2022-04-15 00:00:00 Completed [facility] TD, NOS 2022-04-15 00:00:00 Completed [facility] Varicella (varivax)(chicken pox) 2022-04-15 00:00:00 Completed [facility] TDAP 2022-04-15 00:00:00 Completed [facility] Influenza Virus Vaccine Quad IM 3+ YRS 2022-04-15 00:00:00 Completed [facility] Influenza Virus Vaccine 2021-08-31 00:00:00 Completed [facility] Rubella 2021-08-31 00:00:00 Completed [facility] TD, NOS 2021-08-31 00:00:00 Completed [facility] Varicella (varivax)(chicken pox) 2021-08-31 00:00:00 Completed [facility] TDAP 2021-08-31 00:00:00 Completed [facility] Influenza Virus Vaccine Quad IM 3+ YRS 2021-08-31 00:00:00 Completed [facility] Influenza Virus Vaccine Quad .5 mL IM 6+ MO 2020-12-04 00:00:00 Completed [facility] Influenza Virus Vaccine Quad .5 mL IM 6+ MO 2020-12-04 00:00:00 Completed [facility] Influenza Virus Vaccine Quad .5 mL IM 6+ MO 2020-12-04 00:00:00 Completed [facility] Influenza Virus Vaccine Quad .5 mL IM 6+ MO 2020-12-04 00:00:00 Completed [facility] Influenza Virus Vaccine Quad .5 mL IM 6+ MO 2020-12-04 00:00:00 Completed [facility] Influenza Virus Vaccine Quad .5 mL IM 6+ MO 2020-12-04 00:00:00 Completed [facility] Influenza Virus Vaccine Quad .5 mL IM 6+ MO 2020-12-04 00:00:00 Completed [facility] Influenza Virus Vaccine Quad .5 mL IM 6+ MO 2020-12-04 00:00:00 Completed [facility] Influenza Virus Vaccine Quad .5 mL IM 6+ MO 2020-12-04 00:00:00 Completed [facility] Influenza Virus Vaccine Quad .5 mL IM 6+ MO 2020-12-04 00:00:00 Completed [facility] Influenza Virus Vaccine Quad .5 mL IM 6+ MO 2020-12-04 00:00:00 Completed [facility] Influenza Virus Vaccine Quad .5 mL IM 6+ MO 2020-12-04 00:00:00 Completed [facility] Influenza Virus Vaccine Quad .5 mL IM 6+ MO 2020-12-04 00:00:00 Completed [facility] Influenza Virus Vaccine Quad .5 mL IM 6+ MO 2020-12-04 00:00:00 Completed [facility] Influenza Virus Vaccine Quad .5 mL IM 6+ MO (FLUZONE/FLULAVAL/F LUARIX) 2020-12-04 00:00:00 Completed [facility] Influenza Virus Vaccine Quad .5 mL IM 6+ MO (FLUZONE/FLULAVAL/F LUARIX) 2020-12-04 00:00:00 Completed [facility] Influenza Virus Vaccine Quad .5 mL IM 6+ MO (FLUZONE/FLULAVAL/F LUARIX) 2020-12-04 00:00:00 Completed [facility] Influenza Virus Vaccine Quad .5 mL IM 6+ MO 2020-12-04 00:00:00 Completed [facility] Influenza Virus Vaccine Quad .5 mL IM 6+ MO 2020-12-04 00:00:00 Completed [facility] Influenza Virus Vaccine Quad .5 mL IM 6+ MO 2020-12-04 00:00:00 Completed [facility] Influenza Virus Vaccine Quad .5 mL IM 6+ MO 2020-12-04 00:00:00 Completed [facility] Influenza Virus Vaccine Quad .5 mL IM 6+ MO 2020-12-04 00:00:00 Completed [facility] Influenza Virus Vaccine Quad .5 mL IM 6+ MO 2020-12-04 00:00:00 Completed [facility] Influenza Virus Vaccine Quad .5 mL IM 6+ MO 2020-12-04 00:00:00 Completed [facility] Influenza Virus Vaccine Quad .5 mL IM 6+ MO 2020-12-04 00:00:00 Completed [facility] Influenza Virus Vaccine Quad .5 mL IM 6+ MO 2020-12-04 00:00:00 Completed [facility] Influenza Virus Vaccine Quad .5 mL IM 6+ MO 2020-12-04 00:00:00 Completed [facility] Influenza Virus Vaccine Quad .5 mL IM 6+ MO 2020-12-04 00:00:00 Completed [facility] Influenza Virus Vaccine Quad .5 mL IM 6+ MO 2020-12-04 00:00:00 Completed [facility] Influenza Virus Vaccine Quad .5 mL IM 6+ MO 2020-12-04 00:00:00 Completed [facility] Influenza Virus Vaccine Quad .5 mL IM 6+ MO 2020-12-04 00:00:00 Completed [facility] Influenza Virus Vaccine Quad IM 3+ YRS 2015-08-28 00:00:00 Completed [facility] Influenza Virus Vaccine Quad IM 3+ YRS 2015-08-28 00:00:00 Completed [facility] Influenza Virus Vaccine Quad IM 3+ YRS 2015-08-28 00:00:00 Completed [facility] Influenza Virus Vaccine Quad IM 3+ YRS 2015-08-28 00:00:00 Completed [facility] Influenza Virus Vaccine Quad IM 3+ YRS 2015-08-28 00:00:00 Completed [facility] Influenza Virus Vaccine Quad IM 3+ YRS 2015-08-28 00:00:00 Completed [facility] Influenza Virus Vaccine Quad IM 3+ YRS 2015-08-28 00:00:00 Completed [facility] Influenza Virus Vaccine Quad IM 3+ YRS 2015-08-28 00:00:00 Completed [facility] Influenza Virus Vaccine Quad IM 3+ YRS 2015-08-28 00:00:00 Completed [facility] Influenza Virus Vaccine Quad IM 3+ YRS 2015-08-28 00:00:00 Completed [facility] Influenza Virus Vaccine Quad IM 3+ YRS 2015-08-28 00:00:00 Completed [facility] Influenza Virus Vaccine Quad IM 3+ YRS 2015-08-28 00:00:00 Completed [facility] Influenza Virus Vaccine Quad IM 3+ YRS 2015-08-28 00:00:00 Completed [facility] Influenza Virus Vaccine Quad IM 3+ YRS 2015-08-28 00:00:00 Completed [facility] Influenza Virus Vaccine Quad IM 3+ YRS 2015-08-28 00:00:00 Completed [facility] Influenza Virus Vaccine Quad IM 3+ YRS 2015-08-28 00:00:00 Completed [facility] Influenza Virus Vaccine Quad IM 3+ YRS 2015-08-28 00:00:00 Completed [facility] Influenza Virus Vaccine Quad IM 3+ YRS 2015-08-28 00:00:00 Completed [facility] Influenza Virus Vaccine Quad IM 3+ YRS 2015-08-28 00:00:00 Completed [facility] Influenza Virus Vaccine Quad IM 3+ YRS 2015-08-28 00:00:00 Completed [facility] Influenza Virus Vaccine Quad IM 3+ YRS 2015-08-28 00:00:00 Completed [facility] Influenza Virus Vaccine Quad IM 3+ YRS 2015-08-28 00:00:00 Completed [facility] Influenza Virus Vaccine Quad IM 3+ YRS 2015-08-28 00:00:00 Completed [facility] Influenza Virus Vaccine Quad IM 3+ YRS 2015-08-28 00:00:00 Completed [facility] Influenza Virus Vaccine Quad IM 3+ YRS 2015-08-28 00:00:00 Completed [facility] Influenza Virus Vaccine Quad IM 3+ YRS 2015-08-28 00:00:00 Completed [facility] Influenza Virus Vaccine Quad IM 3+ YRS 2015-08-28 00:00:00 Completed [facility] Influenza Virus Vaccine Quad IM 3+ YRS 2015-08-28 00:00:00 Completed [facility] Influenza Virus Vaccine Quad IM 3+ YRS 2015-08-28 00:00:00 Completed [facility] Influenza Virus Vaccine Quad IM 3+ YRS 2015-08-28 00:00:00 Completed [facility] TDAP 2013-05-17 00:00:00 Completed [facility] TDAP 2013-05-17 00:00:00 Completed [facility] TDAP 2013-05-17 00:00:00 Completed [facility] TDAP 2013-05-17 00:00:00 Completed [facility] TDAP 2013-05-17 00:00:00 Completed [facility] TDAP 2013-05-17 00:00:00 Completed [facility] TDAP 2013-05-17 00:00:00 Completed [facility] TDAP 2013-05-17 00:00:00 Completed [facility] TDAP 2013-05-17 00:00:00 Completed [facility] TDAP 2013-05-17 00:00:00 Completed [facility] TDAP 2013-05-17 00:00:00 Completed [facility] TDAP 2013-05-17 00:00:00 Completed [facility] TDAP 2013-05-17 00:00:00 Completed [facility] TDAP 2013-05-17 00:00:00 Completed [facility] TDAP 2013-05-17 00:00:00 Completed [facility] TDAP 2013-05-17 00:00:00 Completed [facility] TDAP 2013-05-17 00:00:00 Completed [facility] TDAP 2013-05-17 00:00:00 Completed [facility] TDAP 2013-05-17 00:00:00 Completed [facility] TDAP 2013-05-17 00:00:00 Completed [facility] TDAP 2013-05-17 00:00:00 Completed [facility] TDAP 2013-05-17 00:00:00 Completed [facility] TDAP 2013-05-17 00:00:00 Completed [facility] TDAP 2013-05-17 00:00:00 Completed [facility] TDAP 2013-05-17 00:00:00 Completed [facility] TDAP 2013-05-17 00:00:00 Completed [facility] TDAP 2013-05-17 00:00:00 Completed [facility] TDAP 2013-05-17 00:00:00 Completed [facility] TDAP 2013-05-17 00:00:00 Completed [facility] TDAP 2013-05-17 00:00:00 Completed [facility] Rubella 2013-04-01 00:00:00 Completed [facility] Rubella 2013-04-01 00:00:00 Completed [facility] Rubella 2013-04-01 00:00:00 Completed [facility] Rubella 2013-04-01 00:00:00 Completed [facility] Rubella 2013-04-01 00:00:00 Completed [facility] Rubella 2013-04-01 00:00:00 Completed [facility] Rubella 2013-04-01 00:00:00 Completed [facility] Rubella 2013-04-01 00:00:00 Completed [facility] Rubella 2013-04-01 00:00:00 Completed [facility] Rubella 2013-04-01 00:00:00 Completed [facility] Rubella 2013-04-01 00:00:00 Completed [facility] Rubella 2013-04-01 00:00:00 Completed [facility] Rubella 2013-04-01 00:00:00 Completed [facility] Rubella 2013-04-01 00:00:00 Completed [facility] Rubella 2013-04-01 00:00:00 Completed [facility] Rubella 2013-04-01 00:00:00 Completed [facility] Rubella 2013-04-01 00:00:00 Completed [facility] Rubella 2013-04-01 00:00:00 Completed [facility] Rubella 2013-04-01 00:00:00 Completed [facility] Rubella 2013-04-01 00:00:00 Completed [facility] Rubella 2013-04-01 00:00:00 Completed [facility] Rubella 2013-04-01 00:00:00 Completed [facility] Rubella 2013-04-01 00:00:00 Completed [facility] Rubella 2013-04-01 00:00:00 Completed [facility] Rubella 2013-04-01 00:00:00 Completed [facility] Rubella 2013-04-01 00:00:00 Completed [facility] Rubella 2013-04-01 00:00:00 Completed [facility] Rubella 2013-04-01 00:00:00 Completed [facility] Rubella 2013-04-01 00:00:00 Completed [facility] Rubella 2013-04-01 00:00:00 Completed [facility] Influenza Virus Vaccine 2010-09-21 00:00:00 Completed [facility] Influenza Virus Vaccine 2010-09-21 00:00:00 Completed [facility] Influenza Virus Vaccine 2010-09-21 00:00:00 Completed [facility] Influenza Virus Vaccine 2010-09-21 00:00:00 Completed [facility] Influenza Virus Vaccine 2010-09-21 00:00:00 Completed [facility] Influenza Virus Vaccine 2010-09-21 00:00:00 Completed [facility] Influenza Virus Vaccine 2010-09-21 00:00:00 Completed [facility] Influenza Virus Vaccine 2010-09-21 00:00:00 Completed [facility] Influenza Virus Vaccine 2010-09-21 00:00:00 Completed [facility] Influenza Virus Vaccine 2010-09-21 00:00:00 Completed [facility] Influenza Virus Vaccine 2010-09-21 00:00:00 Completed [facility] Influenza Virus Vaccine 2010-09-21 00:00:00 Completed [facility] Influenza Virus Vaccine 2010-09-21 00:00:00 Completed [facility] Influenza Virus Vaccine 2010-09-21 00:00:00 Completed [facility] Influenza Virus Vaccine 2010-09-21 00:00:00 Completed [facility] Influenza Virus Vaccine 2010-09-21 00:00:00 Completed [facility] Influenza Virus Vaccine 2010-09-21 00:00:00 Completed [facility] Influenza Virus Vaccine 2010-09-21 00:00:00 Completed [facility] Influenza Virus Vaccine 2010-09-21 00:00:00 Completed [facility] Influenza Virus Vaccine 2010-09-21 00:00:00 Completed [facility] Influenza Virus Vaccine 2010-09-21 00:00:00 Completed [facility] Influenza Virus Vaccine 2010-09-21 00:00:00 Completed [facility] Influenza Virus Vaccine 2010-09-21 00:00:00 Completed [facility] Influenza Virus Vaccine 2010-09-21 00:00:00 Completed [facility] Influenza Virus Vaccine 2010-09-21 00:00:00 Completed [facility] Influenza Virus Vaccine 2010-09-21 00:00:00 Completed [facility] Influenza Virus Vaccine 2010-09-21 00:00:00 Completed [facility] Influenza Virus Vaccine 2010-09-21 00:00:00 Completed [facility] Influenza Virus Vaccine 2010-09-21 00:00:00 Completed [facility] Influenza Virus Vaccine 2010-09-21 00:00:00 Completed [facility] Varicella (varivax)(chicken pox) 2010-08-24 00:00:00 Completed [facility] Varicella (varivax)(chicken pox) 2010-08-24 00:00:00 Completed [facility] Varicella (varivax)(chicken pox) 2010-08-24 00:00:00 Completed [facility] Varicella (varivax)(chicken pox) 2010-08-24 00:00:00 Completed [facility] Varicella (varivax)(chicken pox) 2010-08-24 00:00:00 Completed [facility] Varicella (varivax)(chicken pox) 2010-08-24 00:00:00 Completed [facility] Varicella (varivax)(chicken pox) 2010-08-24 00:00:00 Completed [facility] Varicella (varivax)(chicken pox) 2010-08-24 00:00:00 Completed [facility] Varicella (varivax)(chicken pox) 2010-08-24 00:00:00 Completed [facility] Varicella (varivax)(chicken pox) 2010-08-24 00:00:00 Completed [facility] Varicella (varivax)(chicken pox) 2010-08-24 00:00:00 Completed [facility] Varicella (varivax)(chicken pox) 2010-08-24 00:00:00 Completed [facility] Varicella (varivax)(chicken pox) 2010-08-24 00:00:00 Completed [facility] Varicella (varivax)(chicken pox) 2010-08-24 00:00:00 Completed [facility] Varicella (varivax)(chicken pox) 2010-08-24 00:00:00 Completed [facility] Varicella (varivax)(chicken pox) 2010-08-24 00:00:00 Completed [facility] Varicella (varivax)(chicken pox) 2010-08-24 00:00:00 Completed [facility] Varicella (varivax)(chicken pox) 2010-08-24 00:00:00 Completed [facility] Varicella (varivax)(chicken pox) 2010-08-24 00:00:00 Completed [facility] Varicella (varivax)(chicken pox) 2010-08-24 00:00:00 Completed [facility] Varicella (varivax)(chicken pox) 2010-08-24 00:00:00 Completed [facility] Varicella (varivax)(chicken pox) 2010-08-24 00:00:00 Completed [facility] Varicella (varivax)(chicken pox) 2010-08-24 00:00:00 Completed [facility] Varicella (varivax)(chicken pox) 2010-08-24 00:00:00 Completed [facility] Varicella (varivax)(chicken pox) 2010-08-24 00:00:00 Completed [facility] Varicella (varivax)(chicken pox) 2010-08-24 00:00:00 Completed [facility] Varicella (varivax)(chicken pox) 2010-08-24 00:00:00 Completed [facility] Varicella (varivax)(chicken pox) 2010-08-24 00:00:00 Completed [facility] Varicella (varivax)(chicken pox) 2010-08-24 00:00:00 Completed [facility] Varicella (varivax)(chicken pox) 2010-08-24 00:00:00 Completed [facility] Td 2009-07-03 00:00:00 Completed [facility] Td 2009-07-03 00:00:00 Completed [facility] Td 2009-07-03 00:00:00 Completed [facility] Td 2009-07-03 00:00:00 Completed [facility] Td 2009-07-03 00:00:00 Completed [facility] Td 2009-07-03 00:00:00 Completed [facility] Td 2009-07-03 00:00:00 Completed [facility] Td 2009-07-03 00:00:00 Completed [facility] Td 2009-07-03 00:00:00 Completed [facility] Td 2009-07-03 00:00:00 Completed [facility] Td 2009-07-03 00:00:00 Completed [facility] TD, NOS 2009-07-03 00:00:00 Completed [facility] TD, NOS 2009-07-03 00:00:00 Completed [facility] TD, NOS 2009-07-03 00:00:00 Completed [facility] TD, NOS 2009-07-03 00:00:00 Completed [facility] TD, NOS 2009-07-03 00:00:00 Completed [facility] Td 2009-07-03 00:00:00 Completed [facility] Td 2009-07-03 00:00:00 Completed [facility] Td 2009-07-03 00:00:00 Completed [facility] Td 2009-07-03 00:00:00 Completed [facility] Td 2009-07-03 00:00:00 Completed [facility] Td 2009-07-03 00:00:00 Completed [facility] Td 2009-07-03 00:00:00 Completed [facility] Td 2009-07-03 00:00:00 Completed [facility] Td 2009-07-03 00:00:00 Completed [facility] Td 2009-07-03 00:00:00 Completed [facility] Td 2009-07-03 00:00:00 Completed [facility] Td 2009-07-03 00:00:00 Completed [facility] Td 2009-07-03 00:00:00 Completed [facility] Td 2009-07-03 00:00:00 Completed [facility] Vital Signs Vital Name Observation Time Observation Value Comments S ource Systolic blood pressure 2025-02-11 13:49:00 126 mm[Hg] [facility] Diastolic blood pressure 2025-02-11 13:49:00 98 mm[Hg] [facility] Heart rate 2025-02-11 13:43:00 73 /min [facility] Body temperature 2025-02-11 13:43:00 36.44 Lilia [facility] Respiratory rate 2025-02-11 13:43:00 18 /min [facility] Body height 2025-02-11 13:43:00 157.5 cm [facility] Body weight 2025-02-11 13:43:00 90.493 kg [facility] BMI 2025-02-11 13:43:00 36.49 kg/m2 [facility] Systolic blood pressure 2024-10-11 14:00:00 135 mm[Hg] [facility] Diastolic blood pressure 2024-10-11 14:00:00 91 mm[Hg] [facility] Heart rate 2024-10-11 13:56:00 81 /min [facility] Body temperature 2024-10-11 13:56:00 36.78 Lilia [facility] Respiratory rate 2024-10-11 13:56:00 18 /min [facility] Body height 2024-10-11 13:56:00 157.5 cm [facility] Body weight 2024-10-11 13:56:00 92.109 kg [facility] BMI 2024-10-11 13:56:00 37.14 kg/m2 [facility] Body temperature 2024-08-27 17:49:00 36.67 Lilia [facility] Systolic blood pressure 2024-01-08 16:47:00 135 mm[Hg] [facility] Diastolic blood pressure 2024-01-08 16:47:00 91 mm[Hg] [facility] Heart rate 2024-01-08 16:47:00 75 /min [facility] Body temperature 2024-01-08 16:45:00 36.83 Lilia [facility] Respiratory rate 2024-01-08 16:45:00 18 /min [facility] Body height 2024-01-08 16:45:00 157.5 cm [facility] Body weight 2024-01-08 16:45:00 87.147 kg [facility] BMI 2024-01-08 16:45:00 35.14 kg/m2 [facility] Systolic blood pressure 2023-08-08 16:16:00 130 mm[Hg] [facility] Diastolic blood pressure 2023-08-08 16:16:00 86 mm[Hg] [facility] Heart rate 2023-08-08 16:15:00 73 /min [facility] Respiratory rate 2023-08-08 16:15:00 18 /min [facility] Body height 2023-08-08 16:15:00 157.5 cm [facility] Body weight 2023-08-08 16:15:00 79.833 kg [facility] BMI 2023-08-08 16:15:00 32.19 kg/m2 [facility] Systolic blood pressure 2022-11-23 20:36:00 136 mm[Hg] [facility] Diastolic blood pressure 2022-11-23 20:36:00 86 mm[Hg] [facility] Heart rate 2022-11-23 20:36:00 109 /min [facility] Body temperature 2022-11-23 20:36:00 36.78 Lilia [facility] Respiratory rate 2022-11-23 20:36:00 18 /min [facility] Body height 2022-11-23 20:36:00 157.5 cm [facility] Body weight 2022-11-23 20:36:00 75.751 kg [facility] BMI 2022-11-23 20:36:00 30.54 kg/m2 [facility] Systolic blood pressure 2022-10-28 17:00:00 111 mm[Hg] [facility] Diastolic blood pressure 2022-10-28 17:00:00 74 mm[Hg] [facility] Heart rate 2022-10-28 17:00:00 97 /[facility] Body temperature 2022-10-28 17:00:00 37.28 Lilia [facility] Respiratory rate 2022-10-28 17:00:00 16 /min [facility] Oxygen saturation in Arterial blood by Pulse oximetry 2022-10-28 17:00:00 100 /min [facility] Body height 2022-10-27 12:00:00 157.5 cm [facility] Body weight 2022-10-27 12:00:00 84.46 kg [facility] BMI 2022-10-27 12:00:00 34.06 kg/m2 [facility] Systolic blood pressure 2022-10-27 13:00:00 125 mm[Hg] [facility] Diastolic blood pressure 2022-10-27 13:00:00 78 mm[Hg] [facility] Heart rate 2022-10-27 13:00:00 79 /min [facility] Oxygen saturation in Arterial blood by Pulse oximetry 2022-10-27 13:00:00 100 /min [facility] Body temperature 2022-10-27 12:00:00 36.67 Lilia [facility] Respiratory rate 2022-10-27 12:00:00 18 /min [facility] Body height 2022-10-27 12:00:00 157.5 cm [facility] Body weight 2022-10-27 12:00:00 84.46 kg [facility] BMI 2022-10-27 12:00:00 34.06 kg/m2 [facility] Systolic blood pressure 2022-10-26 16:02:00 121 mm[Hg] [facility] Diastolic blood pressure 2022-10-26 16:02:00 77 mm[Hg] [facility] Heart rate 2022-10-26 16:02:00 91 /min [facility] Body temperature 2022-10-26 16:02:00 36.83 Lilia [facility] Respiratory rate 2022-10-26 16:02:00 18 /min [facility] Body height 2022-10-26 16:02:00 157.5 cm [facility] Body weight 2022-10-26 16:02:00 84.823 kg [facility] BMI 2022-10-26 16:02:00 34.20 kg/m2 [facility] Systolic blood pressure 2022-10-18 15:43:00 124 mm[Hg] [facility] Diastolic blood pressure 2022-10-18 15:43:00 77 mm[Hg] [facility] Heart rate 2022-10-18 15:43:00 97 /min [facility] Body temperature 2022-10-18 15:43:00 36.72 Lilia [facility] Respiratory rate 2022-10-18 15:43:00 18 /min [facility] Body height 2022-10-18 15:43:00 157.5 cm [facility] Body weight 2022-10-18 15:43:00 84.823 kg [facility] BMI 2022-10-18 15:43:00 34.20 kg/m2 [facility] Systolic blood pressure 2022-10-11 14:17:00 126 mm[Hg] [facility] Diastolic blood pressure 2022-10-11 14:17:00 81 mm[Hg] [facility] Heart rate 2022-10-11 14:17:00 88 /min [facility] Body temperature 2022-10-11 14:17:00 37.11 Lilia [facility] Respiratory rate 2022-10-11 14:17:00 16 /min [facility] Body height 2022-10-11 14:17:00 157.5 cm [facility] Body weight 2022-10-11 14:17:00 85.231 kg [facility] BMI 2022-10-11 14:17:00 34.37 kg/m2 [facility] Oxygen saturation in Arterial blood by Pulse oximetry 2022-10-11 14:17:00 100 /min [facility] Systolic blood pressure 2022-09-27 14:19:00 129 mm[Hg] [facility] Diastolic blood pressure 2022-09-27 14:19:00 78 mm[Hg] [facility] Heart rate 2022-09-27 14:19:00 85 /min [facility] Body temperature 2022-09-27 14:19:00 36.94 [facility] Respiratory rate 2022-09-27 14:19:00 18 /min [facility] Body height 2022-09-27 14:19:00 157.5 cm [facility] Body weight 2022-09-27 14:19:00 84.505 kg [facility] BMI 2022-09-27 14:19:00 34.07 kg/m2 [facility] Systolic blood pressure 2022-09-13 16:25:00 108 mm[Hg] [facility] Diastolic blood pressure 2022-09-13 16:25:00 78 mm[Hg] [facility] Heart rate 2022-09-13 16:25:00 97 /min [facility] Body temperature 2022-09-13 16:25:00 36.94 Lilia [facility] Respiratory rate 2022-09-13 16:25:00 18 /min [facility] Body height 2022-09-13 16:25:00 157.5 cm [facility] Body weight 2022-09-13 16:25:00 84.369 kg [facility] BMI 2022-09-13 16:25:00 34.02 kg/m2 [facility] Systolic blood pressure 2022-08-30 15:57:00 112 mm[Hg] [facility] Diastolic blood pressure 2022-08-30 15:57:00 73 mm[Hg] [facility] Heart rate 2022-08-30 15:57:00 83 /min [facility] Body temperature 2022-08-30 15:57:00 36.89 Lilia [facility] Respiratory rate 2022-08-30 15:57:00 16 /min [facility] Body height 2022-08-30 15:57:00 157.5 cm [facility] Body weight 2022-08-30 15:57:00 83.19 kg [facility] BMI 2022-08-30 15:57:00 33.54 kg/m2 [facility] Oxygen saturation in Arterial blood by Pulse oximetry 2022-08-30 15:57:00 99 /min [facility] Systolic blood pressure 2022-08-12 14:23:00 113 mm[Hg] [facility] Diastolic blood pressure 2022-08-12 14:23:00 73 mm[Hg] [facility] Heart rate 2022-08-12 14:23:00 88 /min [facility] Body temperature 2022-08-12 14:23:00 37.06 Lilia [facility] Respiratory rate 2022-08-12 14:23:00 16 /min [facility] Body height 2022-08-12 14:23:00 157.5 cm [facility] Body weight 2022-08-12 14:23:00 84.596 kg [facility] BMI 2022-08-12 14:23:00 34.11 kg/m2 [facility] Oxygen saturation in Arterial blood by Pulse oximetry 2022-08-12 14:23:00 99 /min [facility] Systolic blood pressure 2022-07-15 13:57:00 130 mm[Hg] [facility] Diastolic blood pressure 2022-07-15 13:57:00 77 mm[Hg] [facility] Heart rate 2022-07-15 13:57:00 87 /min [facility] Body temperature 2022-07-15 13:57:00 36.94 Lilia [facility] Body height 2022-07-15 13:57:00 157.5 cm [facility] Body weight 2022-07-15 13:57:00 84.369 kg [facility] BMI 2022-07-15 13:57:00 34.02 kg/m2 [facility] Systolic blood pressure 2022-06-14 13:11:00 120 mm[Hg] [facility] Diastolic blood pressure 2022-06-14 13:11:00 81 mm[Hg] [facility] Heart rate 2022-06-14 13:11:00 85 /min [facility] Body temperature 2022-06-14 13:11:00 36.83 Lilia [facility] Respiratory rate 2022-06-14 13:11:00 18 /min [facility] Body height 2022-06-14 13:11:00 157.5 cm [facility] Body weight 2022-06-14 13:11:00 82.918 kg [facility] BMI 2022-06-14 13:11:00 33.43 kg/m2 [facility] Systolic blood pressure 2022-05-17 13:14:00 121 mm[Hg] [facility] Diastolic blood pressure 2022-05-17 13:14:00 77 mm[Hg] [facility] Heart rate 2022-05-17 13:14:00 79 /min [facility] Body temperature 2022-05-17 13:14:00 36.94 Lilia [facility] Respiratory rate 2022-05-17 13:14:00 17 /min [facility] Body height 2022-05-17 13:14:00 157.5 cm [facility] 2022-05-17 13:14:00 83.598 kg [facility] BMI 2022-05-17 13:14:00 33.71 kg/m2 [facility] Body height 2019-06-21 20:01:00 157.5 cm [facility] Body weight 2019-06-21 20:01:00 84.142 kg [facility] BMI 2019-06-21 20:01:00 33.93 kg/m2 [facility] Systolic blood pressure 2019-06-21 20:01:00 126 mm[Hg] [facility] Diastolic blood pressure 2019-06-21 20:01:00 79 mm[Hg] [facility] Heart rate 2019-06-21 20:01:00 64 /min [facility] Body temperature 2019-06-21 20:01:00 36.61 Lilia [facility] Respiratory rate 2019-06-21 20:01:00 16 /min [facility] Body height 2019-06-21 20:01:00 157.5 cm [facility] Body weight 2019-06-21 20:01:00 84.142 kg [facility] BMI 2019-06-21 20:01:00 33.93 kg/m2 [facility] Systolic blood pressure 2019-06-21 20:01:00 126 mm[Hg] [facility] Diastolic blood pressure 2019-06-21 20:01:00 79 mm[Hg] [facility] Heart rate 2019-06-21 20:01:00 64 /min [facility] Body temperature 2019-06-21 20:01:00 36.61 Lilia [facility] Respiratory rate 2019-06-21 20:01:00 16 /min [facility] Procedures Procedure Date / Time Performed Performing Clinician Source GC & CHLAMYDIA AMPLIFIED ASSAY 2025-02-11 14:20:00 Kristine Webber [facility] LAB ONLY PAP SMEAR-LIQUID BASED 2025-02-11 14:20[facility] - VAGINAL PATHOGENS BY NUCLEIC ACID TESTING 2025-02-11 14:20:00 Akbar [facility] HIGH RISK HPV-THIN PREP 2025-02-11 14:20:00 Tyrell Webber [facility] PAP SMEAR-LIQUID BASED-CP 2025-02-11 14:20:00 Akbar [facility] POCT TEST 2025-02-11 13:58:00 Aidan Ramirez [facility] GARDASIL 9 (HPV 9V) VACCINE 2025-02-11 13:57:35 Vanessa Ramirez [facility] FLU VACC (), 6+ MONTHS, IM, TIV (AFLURIA/FLUARIX/FLULAVA L/FLUZONE) 2024-10-11 14:31:39 Kristine Webber [facility] GALV ONLY - VAGINAL PATHOGENS BY NUCLEIC ACID TESTING 2024-10-11 14:29:00 Kristine Webber [facility] GARDASIL 9 (HPV 9V) VACCINE 2024-08-27 17:49:24 Vanessa Ramirez [facility] GARDASIL 9 (HPV 9V) VACCINE 2024-01-08 17:00:40 Vanessa Ramirez [facility] POCT TEST 2024-01-08 16:48:00 Minal Neely [facility] ASSIGNMENT OF BENEFITS 2023-08-08 16:03:25 Docto r Unassigned, [place] [facility] DME/SUPPLY JUSTIFICATION 2022-11-17 06:01:00 Doc tor Unassigned, [place] [facility] DME/SUPPLY JUSTIFICATION 2022-11-08 06:01:00 Doc tor Unassigned, [place] [facility] CBC WITH DIFF 2022-10-28 10:15:00 [facility] CBC WITH DIFF 2022-10-28 10:15:00 Adum, [facility] SECTION 2022-10-27 13:47:00 Adum, [facility] 2022-10-27 13:47:00 Adum, Iveth Christie Un [facility] ASSIGNMENT OF BENEFITS 2022-10-26 17:29:30 Docto r Unassigned, [place] [facility] POCT URINALYSIS W/O SPECIFIC GRAVITY 2022-10-26 00:00:00 Adum, Iveth Christie [facility] DSU PRE-OP 2022-10-18 06:01:00 Doctor Unass igned, [place] [facility] POCT URINALYSIS W/O SPECIFIC GRAVITY 2022-10-18 00:00:00 Adum, Iveth Christie [facility] POCT URINALYSIS W/O SPECIFIC GRAVITY 2022-10-11 00:00:00 Cally Calderon [facility] 1 HR GLUCOSE TOLERANCE TEST 2022-10-07 15:46:00 Adum, Iveth Christie [facility] GLUCOSE FASTING 2022-10-07 14:43:00 Adum, [facility]INALYSIS W/O SPECIFIC GRAVITY 2022-09-27 14:28:00 Adum, Iveth Christie [facility] DME/SUPPLY JUSTIFICATION 2022-09-14 05:01:00 Doc tor Unassigned, [place] [facility] FLU VACC ([id number]), 6 MO-64 YRS, .5ML, IM, QUAD (FLUCELVAX) 2022-09-13 16:37:20 Adum, Iveth Christie [facility] GLUCOSE 1 HOUR POST PRANDIAL 2022-09-13 14:45:00 Quincy Mera [facility] CBC WITH DIFF 2022-09-13 14:45:00 Quincy Mera [facility] HB ABO GROUPING 2022-09-13 14:45:00 Quincy Mera [facility] HIV 1/2 AG-AB WITH REFLEX 2022-09-13 14:45:00 Quincy Mera [facility] POCT URINALYSIS W/O SPECIFIC GRAVITY 2022-09-13 00:00:00 Adum, Iveth Christie [facility] POCT URINALYSIS W/O SPECIFIC GRAVITY 2022-08-30 00:00:00 Adum, Iveth Christie [facility] DME/SUPPLY JUSTIFICATION 2022-08-18 05:01:00 Doc tor Unassigned, [place] [facility] TDAP VACCINE, >11 YRS, IM 2022-08-12 14:25:45 Cally Calderon [facility] POCT URINALYSIS W/O SPECIFIC GRAVITY 2022-08-12 00:00:00 Kvng [facility] POCT URINALYSIS W/O SPECIFIC GRAVITY 2022-07-15 00:00:00 Quincy Mera [facility] SECOND AND THIRD TRIMESTER ULTRASOUND 2022-07-01 15:10:00 Kvng [facility] POCT URINALYSIS W/O SPECIFIC GRAVITY 2022-06-14 00:00:00 [facility] GALV ONLY - VAGINAL PATHOGENS BY NUCLEIC ACID TESTING 2022-05-17 13:37:00 K[facility]ng [facility] POCT URINALYSIS W/O SPECIFIC GRAVITY 2022-05-17 13:16:00 [facility] Encounters Start Date/Time End Date/Time Encounter Type Admission Type Attending Clinicians Care Facility Care Department Encounter ID Source 2021-09-21 03:50:49 Emergency [facility] [id number] [facility] 2025-02-13 00:00:00 2025-02-13 09:17:08 Case Management Kristine Webber [facility] [employer] [facility] [id number] [id number] [id number] [facility] 2025-02-11 08:45:00 2025-02-11 09:24:56 Outpatient R JANET WEBBERICE [facility] [id number] [facility] 2025-02-11 08:45:00 2025-02-11 09:24:56 [facility] ..840.114 350.1.13.10 [id number] [id number] [facility] 2025-01-08 13:15:00 2025-01-08 13:15:00 Outpatient R [facility] [id number] [facility] 2024-10-11 15:00:00 2024-10-11 15:00:00 Outpatient R KRISTINE WEBBER [facility] [id number] [facility] 2024-10-11 08:00:00 2024-10-11 08:30:27 Outpatient R KRISTINE WEBBER [facility] [id number] [facility] 2024-10-11 08:00:00 2024-10-11 08:30:27 Office Visit Kristine Webber [facility] [employer] [facility] CHILD [facility] 1..840.114 350.1.13.10 [id number] [id number] [facility] 2024-08-27 13:15:00 2024-08-27 13:30:00 Nurse Visit Nurse, Memo Brandt Rgv Cprit ObgyVanessa Rios Nurse, Memo Brandt Rgv Cprit Obgyn [facility] [employer] [facility]ILD [facility] ..840.114 350.1.13.10 4.2.7.2.686 [id number] [facility] 2024-08-27 13:15:00 2024-08-27 13:15:00 Outpatient R VANESSA RAMIREZ [facility] [id number] [facility] 2024-08-27 10:00:00 2024-08-27 10:00:00 Outpatient R [facility] [id number] [facility] 2024-07-03 10:30:00 2024-07-03 10:30:00 Outpatient R [facility] [id number] [facility] 2024-06-18 00:00:00 2024-06-18 11:18:36 Letter (Out) Nurse, Memo Rmchp Rgv Cprit Obgyn [facility] [employer] [facility]ILD [facility] .[id number] 350.1.13.10 [id number] [id number] [facility] 2024-04-09 10:30:00 2024-04-09 10:30:00 Outpatient R NEVA NEELY [facility] [id number] [facility] 2024-03-13 10:30:00 2024-03-13 10:30:00 Outpatient R IVETH LOERA [facility] [id number] [facility] 2024-02-13 10:45:00 2024-02-13 10:45:00 Outpatient R [facility] [id number] [facility] 2024-01-08 11:00:00 2024-01-08 11:39:36 Outpatient R NEVA NEELY [facility] [id number] [facility] 2024-01-08 11:00:00 2024-01-08 11:39:36 Office Visit Neva Neely [facility] [employer] [facility] CHILD [facility] .[id number] 350.1.13.10 4.2.7.2.686 [id number] [facility] 2023-08-08 11:30:00 2023-08-08 11:30:36 Outpatient R CALLY CALDERON CHERYAL [facility] [id number] [facility] 2023-08-08 11:30:00 2023-08-08 11:30:36 Office Visit Kvng Cally [facility] 1.2840.114 350.1.13.10 4.2.7.2.686 [id number] [facility] 2023-08-08 00:00:00 2023-08-08 00:00:00 Orders Only Doctor Unassigned[place] [facility] 1.2840.114 350.1.13.10 4.2.7.2.686 [id number] [facility] 2023-05-18 11:00:00 2023-05-18 11:00:00 Out[facility] [id number] 2022-12-21 10:00:00 2022-12-21 10:00:00 [id number] [facility] 2022-11-23 13:45:00 2022-11-23 14:58:02 Outpatient R DAVID [facility] [id number] [facility] 2022-11-23 13:45:00 2022-11-23 14:58:02 Routine Visit Iveth Loera [facility] 1.2840.114 350.1.13.10 4.2.7.2.686 [id number] [facility] 2022-11-22 16:00:00 2022-11-22 16:00:00 Outpatient R DAVID [facility] [id number] [facility] 2022-11-17 00:00:00 2022-11-17 00:00:00 Orders Only Doctor Unassigned, [place] [facility] 1.2840.114 350.1.13.10 4.2.7.2.686 [id number] [facility] 2022-11-08 00:00:00 2022-11-08 00:00:00 Orders Only Doctor Unassigned, [place] [facility] [id number] 350.1.13.10 4.2.7.2.686 [id number] [facility] 2022-11-02 11:00:00 2022-11-02 11:00:00 Outpatient R ADFRANCO IVETH [facility] [id number] [facility] 2022-10-27 05:50:00 2022-10-28 19:30:00 Hospital Encounter Adfranco [facility] [id number] 350.1.13.10 4.2.7.2.686 [id number] [facility] 2022-10-27 07:50:00 2022-10-27 09:38:00 Surgery Adfranco [facility] 1.2.840.114 350.1.13.10 4.2.7.2.686 [id number] [facility] 2022-10-26 12:00:00 2022-10-26 12:15:00 Aircraft Riveter Visit Pob, [facility] 1.2840.114 350.1.13.10 4.2.7.2.686 [id number] [facility] 2022-10-26 12:00:00 2022-10-26 12:00:00 Outpatient R ADFRANCO [facility] [id number] [facility] 2022-10-26 10:00:00 2022-10-26 10:25:21 Routine Visit RamirezIveth wilkins [facility] 1.2.840.114 350.1.13.10 4.2.7.2.686 [id number] 134 [id number] [facility] 2022-10-26 10:00:00 2022-10-26 10:25:21 Outpatient R ADFRANCO [facility] [id number] [facility] 2022-10-26 00:00:00 2022-10-26 00:00:00 Orders Only Doctor Unassigned, [place] [facility] 1.2840.114 350.1.13.10 4.2.7.2.686 [id number] [facility] 2022-10-18 11:00:00 2022-10-18 11:15:00 Aircraft Riveter Visit 2, Adc Lab Adfranco [facility] 1.2840.114 350.1.13.10 4.2.7.2.686 [id number] [facility] 2022-10-18 09:30:00 2022-10-18 10:16:55 Outpatient R ADFRANCO [facility] [id number] [facility] 2022-10-18 09:30:00 2022-10-18 10:16:55 [facility] 1.20.114 350.1.13.10 4.2.7.2.686 [id number] 134 [id number] [facility] 2022-10-18 00:00:00 2022-10-18 00:00:00 Orders Only Doctor Unassigned, [place] [facility] 1.2840.114 350.1.13.10 4.2.7.2.686 [id number] [id number] [facility] 2022-10-11 08:15:00 2022-10-11 08:38:46 Routine Visit Cally Calderon [facility] 1.2840.114 350.1.13.10 4.2.7.2.686 [id number] 134 [id number] [facility] 2022-10-11 08:15:00 2022-10-11 08:38:46 Outpatient R CALLY CALDERON CHERYAL [facility] [id number] [facility] 2022-10-11 00:00:00 2022-10-11 00:00:[address] [facility] 1.840.114 350.1.13.10 4.2.7.2.686 [id number] 134 [id number] [facility] 2022-10-07 08:45:00 2022-10-07 11:46:42 Aircraft Riveter Visit 2, Adc Lab Quincy Mera [facility] 1.840.114 350.1.13.10 4.2.7.2.686 [id number] 353 [id number] [facility] 2022-10-07 08:45:00 2022-10-07 08:45:00 Outpatient R QUINCY MERA [facility] [id number] [facility] 2022-10-05 08:45:00 2022-10-05 08:45:00 Outpatient R [facility] [id number] [facility] 2022-09-27 08:15:00 2022-09-27 08:49:15 Outpatient R IVETH LOERA [facility] [id number] [facility] 2022-09-27 08:15:00 2022-09-27 08:49:15 Routine [address] Iveth Loera [facility] 1.840.114 350.1.13.10 4.2.7.2.686 [id number] 134 [id number] [facility] 2022-09-16 08:45:00 2022-09-16 08:45:00 Outpatient R [facility] [id number] [facility] 2022-09-15 00:00:00 2022-09-15 00:00:00 Case Management AdIveth wilkins [facility] 1.0.114 350.1.13.10 4.2.7.2.686 [id number] 134 [id number] [facility] 2022-09-14 00:00:00 2022-09-14 00:00:00 Orders Only Doctor Unassigned, [place] [facility] 1.20.114 350.1.13.10 4.2.7.2.686 [id number] [facility] 2022-09-13 11:15:00 2022-09-13 12:00:16 Outpatient R ADUM, [facility] [id number] [facility] 2022-09-13 11:15:00 2022-09-13 12:00:16 Routine Visit Ad, [facility] 1.0.114 350.1.13.10 4.2.7.2.686 [id number] 134 [id number] [facility] 2022-09-13 08:30:00 2022-09-13 08:45:00 Aircraft Riveter Visit Pob, Adc Lab Main Ad, [facility] 1..114 350.1.13.10 4.2.7.2.686 [id number] [facility] 2022-08-30 09:45:00 2022-08-30 11:18:15 Outpatient R ADUM, [facility] [id number] [facility] 2022-08-30 09:45:00 2022-08-30 11:18:15 Routine Visit Adum, [facility] 1.2.114 350.1.13.10 4.2.7.2.686 [id number] 134 [id number] [facility] 2022-08-18 00:00:00 2022-08-18 00:00:00 Refill Quincy Mera [facility] 1.0.114 350.1.13.10 4.2.7.2.686 [id number] 134 [id number] [facility] 2022-08-18 00:00:00 2022-08-18 00:00:00 Orders Only Doctor Unassigned, [place] [facility] 1.840.114 350.1.13.10 4.2.7.2.686 [id number] [facility] 2022-08-12 09:00:00 2022-08-12 09:39:37 Outpatient R [facility] [id number] [facility] 2022-08-12 09:00:00 2022-08-12 09:39:37 [facility] 1.0.114 350.1.13.10 4.2.7.2.686 [id number] 134 [id number] [facility] 2022-07-15 09:00:00 2022-07-15 09:18:55 Outpatient R QUINCY MERA [facility] [id number] [facility] 2022-07-15 09:00:00 2022-07-15 09:18:55 Routine Visit Quincy Mera [facility] 1..114 350.1.13.10 4.2.7.2.686 [id number] 134 [id number] [facility] 2022-07-01 08:30:00 2022-07-01 09:48:53 Aircraft Riveter Visit 5, [facility] Edita Biggs [facility] 1.0.114 350.1.13.10 4.2.7.2.686 [id number] [facility] 2022-07-01 08:30:00 2022-07-01 08:30:00 Outpatient P EDITA BIGGS [facility] [id number] [facility] 2022-06-27 08:00:00 2022-06-27 08:00:00 Outpatient P [facility] [id number] [facility] 2022-06-14 08:00:00 2022-06-14 08:24:35 Outpatient R KRISTIECALLY [facility] [id number] [facility] 2022-06-14 08:00:00 2022-06-14 08:24:35 [facility] 1..840.114 350.1.13.10 4.2.7.2.686 [id number] 134 [id number] [facility] 2022-05-17 08:00:00 2022-05-17 08:44:25 Outpatient R KVNG CALLY KVNG [facility] [id number] [facility] 2022-05-17 08:00:00 2022-05-17 08:44:25 [facility] 1..840.114 350.1.13.10 4.2.7.2.686 [id number] 134 [id number] [facility] 2022-05-13 09:15:00 2022-05-13 09:15:00 Outpatient R KVNGCALLY KVNG [facility] [id number] [facility] 2022-04-28 00:00:00 2022-04-28 00:00:[address] [facility] 1..840.114 350.1.13.10 4.2.7.2.686 [id number] 134 [id number] [facility] 2022-04-21 09:00:00 2022-04-21 09:00:00 Outpatient R VANESSA RAMIREZ [facility] [id number] [facility] 2022-04-21 09:00:00 2022-04-21 09:00:00 Outpatient R DHRUVLAILAPAULAVANESSA [facility] [id number] [facility] 2022-04-19 08:30:00 2022-04-19 08:45:00 Aircraft Riveter Visit Pob, Adc Lab Main Mera Quincy Hodge [facility] 1..114 350.1.13.10 4.2.7.2.686 [id number] [facility] 2022-04-19 08:30:00 2022-04-19 08:30:00 Outpatient R MERA QUINCY [facility] [id number] [facility] 2022-04-19 00:00:00 2022-04-19 00:00:00 Orders Only Doctor Unassigned, [place] [facility] 1.114 350.1.13.10 4.2.7.2.686 [id number] [facility] 2022-04-15 14:30:00 2022-04-15 15:03:33 Outpatient R MERA QUINCY [facility] [id number] [facility] 2022-04-15 14:30:00 2022-04-15 15:03:33 Initial Visit MeraQuincy Naveen [facility] 1.114 350.1.13.10 4.2.7.2.686 [id number] 134 [id number] [facility] 2022-04-15 00:00:00 2022-04-15 00:00:00 Patient Secure Msg Doctor Unassigned, [place] [facility] 1.114 350.1.13.10 4.2.7.2.686 [id number] 134 [id number] [facility] 2022-04-06 11:15:00 2022-04-06 14:25:00 Emergency X JAY BERNARD [facility] ERT [id number] [facility] 2022-04-06 11:15:00 2022-04-06 14:25:00 Emergency Jay Bernard [facility] 1.2.840.114 350.1.13.10 4.2.7.2.686 [id number] [facility] 2022-03-25 00:00:00 2022-03-25 00:00:00 Telephone Vanessa Ramirez [facility] AUTO CARRIER DRIVER [facility] 1.2.840.114 350.1.13.10 4.2.7.2.686 [id number] [facility] 2022-03-24 08:30:00 2022-03-24 09:53:31 Outpatient VANESSA FABIAN [facility] [id number] [facility] 2022-03-24 08:30:00 2022-03-24 09:53:31 Initial Visit Vanessa Ramirez [facility] AUTO CARRIER DRIVER [facility]ILD [facility] 1.2840.114 350.1.13.10 4.2.7.2.686 [id number] [facility] 2022-03-24 08:00:00 2022-03-24 08:57:20 Outpatient VANESSA FABIAN [facility] [id number] [facility] 2022-03-24 00:00:00 2022-03-24 00:00:00 Orders Only Doctor Unassigned, [place] [facility] 1.2840.114 350.1.13.10 4.2.7.2.686 [id number] [facility] 2022-03-02 08:15:00 2022-03-02 08:15:00 Outpatient NEGRO VILLASENOR [facility] [id number] [facility] 2022-03-02 08:15:00 2022-03-02 08:15:00 Outpatient R NEGRO PONCE [facility] [id number] [facility] 2021-10-25 00:00:00 2021-10-25 00:00:00 Negro Santos [facility] AUTO CARRIER DRIVER [facility] CHILD [facility] 1.2840.114 350.1.13.10 4.2.7.2.686 [id number] [facility] 2021-10-22 14:00:00 2021-10-22 14:33:03 Outpatient R BLAKE HUIZAR [facility] [id number] [facility] 2021-10-22 13:47:39 2021-10-22 14:33:03 Office Visit Blake Huizar [facility] AUT[employer] CARRIER DRIVER [facility] CHILD [facility] 1.2840.114 350.1.13.10 4.2.7.2.686 [id number] [facility] 2021-10-19 00:00:00 2021-10-19 00:00:00 Telephone Vanessa Ramirez [facility] AUT[employer] CARRIER DRIVER [facility] CHILD [facility] 1.0.114 350.1.13.10 4.2.7.2.686 [id number] 107 [id number] [facility] 2021-09-06 00:00:00 2021-09-06 00:00:00 Negro Santos [facility] AUTO CARRIER DRIVER [facility] CHILD [facility] 1.2840.114 350.1.13.10 4.2.7.2.686 [id number] 107 [id number] [facility] 2021-08-31 00:00:00 2021-08-31 00:00:00 Patient Secure Msg Doctor Unassigned, [place] [facility] 1.2840.114 350.1.13.10 4.2.7.2.686 [id number] [facility] 2021-08-30 00:00:00 2021-08-30 00:00:00 Transition of Care Marley Ronquillo 1.2840.114 350.1.13.10 4.2.7.2.686 [id number] [facility] 2021-08-23 17:54:00 2021-08-27 15:00:00 Hospital Encounter Cherelle Sharp, Aliyah M[facility]quez [facility] 1.20.114 350.1.13.10 4.2.7.2.686 [id number] [facility] 2021-08-23 00:00:00 2021-08-23 00:00:00 Orders Only Doctor Unassigned, [place] [facility] 1.2840.114 350.1.13.10 4.2.7.2.686 [id number] [facility] 2021-06-15 10:30:00 2021-06-15 10:30:00 Outpatient R [facility] [id number] [facility] 2021-06-15 10:30:00 2021-06-15 10:30:00 Outpatient R VANESSA RAMIREZ [facility] [id number] [facility] 2021-03-16 14:12:23 2021-03-16 14:40:46 Office Visit Negro Ponce [facility] AUTO CARRIER DRIVER [facility] 1..840.114 350.1.13.10 4.2.7.2.686 [id number] 2021-03-16 14:30:00 2021-03-16 14:30:00 Outpatient R NEGRO PONCE [facility] [id number] [facility] 2021-03-02 07:45:00 2021-03-02 07:45:00 Outpatient R BLAKE HUIZAR [facility] [id number] [facility] 2021-02-18 16:50:00 2021-02-18 16:50:00 Outpatient LAURA PLATA [facility] [id number] [facility] 2020-12-04 08:30:00 2020-12-04 08:30:00 Outpatient VANESSA FABIAN [facility] [id number] [facility] 2020-04-03 09:30:00 2020-04-03 09:30:00 Outpatient R [facility] [id number] [facility] 2020-01-23 09:30:00 2020-01-23 09:30:00 Outpatient R VANESSA RAMIREZ [facility] [id number] [facility] 2019-06-21 14:54:30 2019-06-21 16:16:01 Office Visit Blake Huizar [facility] AUTO CARRIER DRIVER [facility] CHILD [facility] 1.2.840.114 350.1.13.10 4.2.7.2.686 [id number] [facility] 2019-06-21 14:54:30 2019-06-21 16:16:01 Office Visit Blake Huizar [facility] AUTO CARRIER DRIVER [facility] CHILD [facility] 1.2.840.114 350.1.13.10 4.2.7.2.686 [id number] 107 [id number] Results Test Description Test Time Test Comments Results Result Co mments Source [facility] [id number] 16:48:00* Test Item Value Reference Range Interpretation Comme nts POCT PREG (test code = 1605) Negative On board controls acceptable with C Line (test code = 3574) Yes POCT PREG LOT # (test code = 3575) POCT PREG TEST DATE ( test code = 3576) [facility] [id number] 16:48:00* Test Item Value Reference Range Interpretation Comme nts POCT PREG (test code = 1605) Negative On board controls acceptable with C Line (test code = 3574) Yes POCT PREG LOT # (test code = 3575) POCT PREG TEST DATE ( test code = 3576) [facility] with [id number] 10:59:48* Test Item Value Reference Range Interpretation Comme nts WBC (test code = 6690-2) See_Comment [Automated Thermogenicsa ge] The system which generated this result transmitted reference range: 4.30 - 11.10 10*3/?L. The reference range was not used to interpret this result as normal/abnormal. RBC (test code = 789-8) See_Comment L [Automated Thermogenicsa ge] The system which generated this result transmitted reference range: 3.93 - 5.25 10*6/?L. The reference range was not used to interpret this result as normal/abnormal. HGB (test code = 718-7) 7.1 g/dL 11.6-15.0 L HCT (test code = 4544-3) 23.9 % 35.7-45.2 L MCV (test code = 787-2) 79.4 fL 80.6-95.5 L MCH (test code = 785-6) 23.6 pg 25.9-32.8 L MCHC (test code = 786-4) 29.7 g/dL 31.6-35.1 L RDW-SD (test code = 26308-9) 45.7 fL 39.0-49.9 RDW-CV (test code = 788-0) 16.9 % 12.0-15.5 H PLT (test code = 777-3) See_Comment L [Automated Thermogenicsa ge] The system which generated this result transmitted reference range: 166 - 358 10*3/?L. The reference range was not used to interpret this result as normal/abnormal. MPV (test code = 84574-1) 10.9 fL 9.5-12.9 IPF % (test code = 0603707104) 6.3 % 1.3-7.7 Platelet count measured by fluorescence method. NRBC/100 WBC (test code = 5024634448) See_Comment [Automated Desalitech ssage] The system which generated this result transmitted reference range: 0.0 - 10.0 /100 WBCs. The reference range was not used to interpret this result as normal/abnormal. NRBC x10^3 (test code = 2387972110) See_Comment [Automated Thermogenicsa ge] The system which generated this result transmitted reference range: 10*3/?L. The reference range was not used to interpret this result as normal/abnormal. GRAN MAT (NEUT) % (test code = 770-8) 76.4 % IMM GRAN % (test code = 4738461937) 1.10 % LYMPH % (test code = 736-9) 13.0 % MONO % (test code = 5905-5) 9.2 % EOS % (test code = 713-8) 0.1 % BASO % (test code = 706-2) 0.2 % GRAN MAT x10^3(ANC) (test code = 5501356258) 7.09 10*3/uL 1.88-7.09 IMM GRAN x10^3 (test code = 0561863601) 0.10 10*3/uL 0.00-0.06 H LYMPH x10^3 (test code = 731-0) 1.21 10*3/uL 1.32-3.29 L MONO x10^3 (test code = 742-7) 0.85 10*3/uL 0.33-0.92 EOS x10^3 (test code = 711-2) 0.03-0.39 L BASO x10^3 (test code = 704-7) 0.01-0.07 Lab Interpretation (test code = 71412-3) Abnormal [facility] with [id number] 10:59:48* Test Item Value Reference Range Interpretation Comme nts WBC (test code = 6690-2) See_Comment [Automated messa ge] The system which generated this result transmitted reference range: 4.30 - 11.10 10*3/?L. The reference range was not used to interpret this result as normal/abnormal. RBC (test code = 789-8) See_Comment L [Automated messa ge] The system which generated this result transmitted reference range: 3.93 - 5.25 10*6/?L. The reference range was not used to interpret this result as normal/abnormal. HGB (test code = 718-7) 7.1 g/dL 11.6-15.0 L HCT (test code = 4544-3) 23.9 % 35.7-45.2 L MCV (test code = 787-2) 79.4 fL 80.6-95.5 L MCH (test code = 785-6) 23.6 pg 25.9-32.8 L MCHC (test code = 786-4) 29.7 g/dL 31.6-35.1 L RDW-SD (test code = 66557-1) 45.7 fL 39.0-49.9 RDW-CV (test code = 788-0) 16.9 % 12.0-15.5 H PLT (test code = 777-3) See_Comment L [Automated Thermogenicsa ge] The system which generated this result transmitted reference range: 166 - 358 10*3/?L. The reference range was not used to interpret this result as normal/abnormal. MPV (test code = 10769-4) 10.9 fL 9.5-12.9 IPF % (test code = 9503250155) 6.3 % 1.3-7.7 Platelet count measured by fluorescence method. NRBC/100 WBC (test code = 3650971215) See_Comment [Automated Desal[employer] ssage] The system which generated this result transmitted reference range: 0.0 - 10.0 /100 WBCs. The reference range was not used to interpret this result as normal/abnormal. NRBC x10^3 (test code = 9681199992) See_Comment [Automated Thermogenicsa ge] The system which generated this result transmitted reference range: 10*3/?L. The reference range was not used to interpret this result as normal/abnormal. GRAN MAT (NEUT) % (test code = 770-8) 76.4 % IMM GRAN % (test code = 2884274180) 1.10 % LYMPH % (test code = 736-9) 13.0 % MONO % (test code = 5905-5) 9.2 % EOS % (test code = 713-8) 0.1 % BASO % (test code = 706-2) 0.2 % GRAN MAT x10^3(ANC) (test code = 1713871821) 7.09 10*3/uL 1.88-7.09 IMM GRAN x10^3 (test code = 4967407554) 0.10 10*3/uL 0.00-0.06 H LYMPH x10^3 (test code = 731-0) 1.21 10*3/uL 1.32-3.29 L MONO x10^3 (test code = 742-7) 0.85 10*3/uL 0.33-0.92 EOS x10^3 (test code = 711-2) 0.03-0.39 L BASO x10^3 (test code = 704-7) 0.01-0.07 Lab Interpretation (test code = 27608-8) Abnormal [facility] URINALYSIS W/O SPECIFIC [id number] 16:08:00* Test Item Value Reference Range Interpretation Comme nts POCT PH U (test code = 3254) N/A 5-8 POCT U LEUK EST (test code = 3263) N/A Negative - Negative POCT U NIT (test code = 3262) N/A Negative - Negati ve POCT U PROT (test code = 3259) Negative Negative - Negat alondra POCT U GLU (test code = 3256) Negative Negative - Negati ve POCT U KETONE (test code = 3258) N/A Negative - Neg ative POCT U BLD (test code = 3257) N/A Negative - Negati ve [facility] URINALYSIS W/O SPECIFIC [id number] 15:46:00* Test Item Value Reference Range Interpretation Comme nts POCT PH U (test code = 3254) N/A 5-8 POCT U LEUK EST (test code = 3263) N/A Negative - Negative POCT U NIT (test code = 3262) N/A Negative - Negati ve POCT U PROT (test code = 3259) Negative Negative - Negat alondra POCT U GLU (test code = 3256) Negative Negative - Negati ve POCT U KETONE (test code = 3258) N/A Negative - Neg ative POCT U BLD (test code = 3257) N/A Negative - Negati ve [facility] URINALYSIS W/O SPECIFIC [id number] 15:11:00* Test Item Value Reference Range Interpretation Comme nts POCT PH U (test code = 3254) n/a 5-8 POCT U LEUK EST (test code = 3263) n/a Negative - Negative POCT U NIT (test code = 3262) n/a Negative - Negati ve POCT U PROT (test code = 3259) negative Negative - Negat alondra POCT U GLU (test code = 3256) negative Negative - Negati ve POCT U KETONE (test code = 3258) n/a Negative - Neg ative POCT U BLD (test code = 3257) n/a Negative - Negati ve [facility] URINALYSIS W/O SPECIFIC [id number] 15:11:00* Test Item Value Reference Range Interpretation Comme nts POCT PH U (test code = 3254) n/a 5-8 POCT U LEUK EST (test code = 3263) n/a Negative - Negative POCT U NIT (test code = 3262) n/a Negative - Negati ve POCT U PROT (test code = 3259) negative Negative - Negat alondra POCT U GLU (test code = 3256) negative Negative - Negati ve POCT U KETONE (test code = 3258) n/a Negative - Neg ative POCT U BLD (test code = 3257) n/a Negative - Negati ve [facility] URINALYSIS W/O SPECIFIC [id number] 14:28:00* Test Item Value Reference Range Interpretation Comme nts POCT PH U (test code = 3254) n/a 5-8 POCT U LEUK EST (test code = 3263) n/a Negative - Negative POCT U NIT (test code = 3262) n/a Negative - Negati ve POCT U PROT (test code = 3259) negative Negative - Negat alondra POCT U GLU (test code = 3256) negative Negative - Negati ve POCT U KETONE (test code = 3258) n/a Negative - Neg ative POCT U BLD (test code = 3257) n/a Negative - Negati ve [facility] URINALYSIS W/O SPECIFIC [id number] 16:35:00* Test Item Value Reference Range Interpretation Comme nts POCT PH U (test code = 3254) N/A 5-8 POCT U LEUK EST (test code = 3263) N/A Negative - Negative POCT U NIT (test code = 3262) N/A Negative - Negati ve POCT U PROT (test code = 3259) Negative Negative - Negat alondra POCT U GLU (test code = 3256) Trace Negative - Negati ve POCT U KETONE (test code = 3258) N/A Negative - Neg ative POCT U BLD (test code = 3257) N/A Negative - Negati ve [facility] WITH [id number] 16:21:30* Test Item Value Reference Range Interpretation Comme nts HIV Semi-quantitative (test code = 18055-2) Negative Negative AMALIA (test code = AMALIA) Non-reactive for HIV-1 antigen and HIV-1/HIV-2 antibodies. ?No laboratory evidence of HIV infection. ?Repeat in 2-4 weeks if acute HIV infection is suspected. [facility] [id number] 15:40:42* Test Item Value Reference Range Interpretation Comme nts GLUC 1 HR (test code = 9565859816) 150 mg/dL 120-170 Lab Interpretation (test cod e = 15309-1) Normal [facility], BLOOD [id number] 15:38:37 * Test Item Value Reference Range Interpretation Comme nts ABO & RH (test code = 20) O Positive Performed at [facility] Laboratory [facility] Blood [address] Free: [phone] No. [id number] IAT (test code = 1185) Negative Performed at [facility] Laboratory [facility] Blood [address] Free: [phone] No. [id number] [facility] WITH [id number] 15:12:42* Test Item Value Reference Range Interpretation Comme nts WBC (test code = 6690-2) See_Comment [Automated messa ge] The system which generated this result transmitted reference range: 4.30 - 11.10 10*3/?L. The reference range was not used to interpret this result as normal/abnormal. RBC (test code = 789-8) See_Comment L [Automated messa ge] The system which generated this result transmitted reference range: 3.93 - 5.25 10*6/?L. The reference range was not used to interpret this result as normal/abnormal. HGB (test code = 718-7) 8.3 g/dL 11.6-15 L HCT (test code = 4544-3) 27.4 % 35.7-45.2 L MCV (test code = 787-2) 81.3 fL 80.6-95.5 MCH (test code = 785-6) 24.6 pg 25.9-32.8 L MCHC (test code = 786-4) 30.3 g/dL 31.6-35.1 L RDW-SD (test code = 59356-8) 42.9 fL 39-49.9 RDW-CV (test code = 788-0) 14.6 % 12-15.5 PLT (test code = 777-3) See_Comment L [Automated [employer]mogenicsa ge] The system which generated this result transmitted reference range: 166 - 358 10*3/?L. The reference range was not used to interpret this result as normal/abnormal. MPV (test code = 75849-3) 11.2 fL 9.5-12.9 IPF % (test code = 2484835585) 5.4 % 1.3-7.7 Platelet count measured by fluorescence method. NRBC/100 WBC (test code = 7999404574) See_Comment [Automated [employer] ssage] The system which generated this result transmitted reference range: 0.0 - 10.0 /100 WBCs. The reference range was not used to interpret this result as normal/abnormal. NRBC x10^3 (test code = 1150504722) See_Comment [Automated Thermogenicsa ge] The system which generated this result transmitted reference range: 10*3/?L. The reference range was not used to interpret this result as normal/abnormal. GRAN MAT (NEUT) % (test code = 770-8) 80.6 % IMM GRAN % (test code = 4056374350) 0.50 % LYMPH % (test code = 736-9) 13.8 % MONO % (test code = 5905-5) 4.7 % EOS % (test code = 713-8) 0.3 % BASO % (test code = 706-2) 0.1 % GRAN MAT x10^3(ANC) (test code = 2156751576) 6.21 10*3/uL 1.88-7.09 IMM GRAN x10^3 (test code = 8772589103) 0.04 10*3/uL 0-0.06 LYMPH x10^3 (test code = 731-0) 1.06 10*3/uL 1.32-3.29 L MONO x10^3 (test code = 742-7) 0.36 10*3/uL 0.33-0.92 EOS x10^3 (test code = 711-2) 0.03-0.39 L BASO x10^3 (test code = 704-7) 0.01-0.07 Lab Interpretation (test code = 94319-8) Abnormal [facility] URINALYSIS W/O SPECIFIC [id number] 16:01:00* Test Item Value Reference Range Interpretation Comme nts POCT PH U (test code = 3254) n/a 5-8 POCT U LEUK EST (test code = 3263) n/a Negative - Negative POCT U NIT (test code = 3262) n/a Negative - Negati ve POCT U PROT (test code = 3259) negative Negative - Negat alondra POCT U GLU (test code = 3256) negative Negative - Negati ve POCT U KETONE (test code = 3258) n/a Negative - Neg ative POCT U BLD (test code = 3257) n/a Negative - Negati ve [facility] URINALYSIS W/O SPECIFIC [id number] 14:33:00* Test Item Value Reference Range Interpretation Comme nts POCT PH U (test code = 3254) n/a 5-8 POCT U LEUK EST (test code = 3263) n/a Negative - Negative POCT U NIT (test code = 3262) n/a Negative - Negati ve POCT U PROT (test code = 3259) trace Negative - Negat alondra POCT U GLU (test code = 3256) negative Negative - Negati ve POCT U KETONE (test code = 3258) n/a Negative - Neg ative POCT U BLD (test code = 3257) n/a Negative - Negati ve [facility] URINALYSIS W/O SPECIFIC [id number] 13:54:00* Test Item Value Reference Range Interpretation Comme nts POCT PH U (test code = 3254) n/a 5-8 POCT U LEUK EST (test code = 3263) n/a Negative - Negative POCT U NIT (test code = 3262) n/a Negative - Negati ve POCT U PROT (test code = 3259) Negative Negative - Negat alondra POCT U GLU (test code = 3256) Normal Negative - Negati ve POCT U KETONE (test code = 3258) n/a Negative - Neg ative POCT U BLD (test code = 3257) n/a Negative - Negati ve [facility] URINALYSIS W/O SPECIFIC [id number] 13:12:00* Test Item Value Reference Range Interpretation Comme nts POCT PH U (test code = 3254) n/a 5-8 POCT U LEUK EST (test code = 3263) n/a Negative - Negative POCT U NIT (test code = 3262) n/a Negative - Negati ve POCT U PROT (test code = 3259) negative Negative - Negat alondra POCT U GLU (test code = 3256) negative Negative - Negati ve POCT U KETONE (test code = 3258) n/a Negative - Neg ative POCT U BLD (test code = 3257) n/a Negative - Negati ve [facility] URINALYSIS W/O SPECIFIC [id number] 13:16:00* Test Item Value Reference Range Interpretation Comme nts POCT PH U (test code = 3254) n/a 5-8 POCT U LEUK EST (test code = 3263) n/a Negative - N egative POCT U NIT (test code = 3262) n/a Negative - Negati ve POCT U PROT (test code = 3259) trace Negative - Negat alondra POCT U GLU (test code = 3256) normal Negative - Negati ve POCT U KETONE (test code = 3258) n/a Negative - Neg ative POCT U BLD (test code = 3257) n/a Negative - Negati ve [facility]
[2025-03-22] MEDS ORDERED: ACETAMINOPHEN 500 MG TAB ONE (17:14)
[2025-03-22 17:51] LABS: Specific Gravity 1.018 (1.005-1.030); Specific Gravity 1.019 (1.005-1.030); Sqamous Epithelial <5 /HPF (None Seen); Urine Bacteria <20 /HPF (<20); Urine Bilirubin NEGATIVE (Negative); Urine Blood Trace (Negative); Urine Clarity Turbid (Clear); Urine Color Light-Yellow (Yellow); Urine Glucose NEGATIVE (Negative); Urine Ketones NEGATIVE (Negative); Urine Micro Reflex YN NO BILL MICROSCOPIC; Urine Mucus Slight /HPF (None Seen); Urine Nitrite NEGATIVE (Negative); Urine Protein NEGATIVE (Negative); Urine RBC <5 /HPF (None Seen); Urine Urobilinogen Normal (Normal); Urine WBC <5 /HPF (<5); Urine pH 7.5 (5.0-7.0)
[2025-03-22] MEDS ORDERED: IBUPROFEN 400 MG TAB ONE (18:23)
[2025-03-22 18:29] LABS: Influenza A Ag Negative; Influenza B Ag Negative; SARS-CoV-2 Antigen Rapid Res Negative (Negative)
--- NOTE | 2025-03-22 18:37 | ER ---
Nurse's Notes [facility] Name: Trish Yung Age: 30 yrs Sex: Female : 1995 Arrival Date: 03/22/2025 Time: 16:57 Bed 6 Private MD: Diagnosis: Headache;Chills (without fever);Acute pharyngitis, unspecified;Disorder of teeth and supporting structures, unspecified Presentation: 03/22 17:08 Chief complaint: EMS states: TONE OUT TO PATIENT'S HOME FOR PATIENT HAVING CHILLS, cm10 HEADACHE, SHAKES ONSET TODAY. 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 LAST TOOK TYLENOL/IBUPROFEN THIS MORNING. Coronavirus screen: Client denies travel out of the [place] in the last 14 days. Ebola Screen: Patient denies travel to an Ebola-affected area in the 21 days before illness onset. Initial Sepsis Screen: Does the patient meet any 2 criteria? No. Patient's initial sepsis screen is negative. Does the patient have a suspected source of infection? No. Patient's initial sepsis screen is negative. Risk Assessment: Do you want to hurt yourself or someone else? Patient reports no desire to harm self or others. Onset of symptoms was March 22, 2025. 17:08 Method Of Arrival: EMS: [facility] cm10 17:08 Acuity: ADÁN 3 cm10 Triage Assessment: 17:10 General: Appears in no apparent distress. uncomfortable, Behavior is calm, cooperative. cm10 Pain: Complains of pain in head Pain currently is 8 out of 10 on a pain scale. Neuro: No deficits noted. Level of Consciousness is awake, alert, obeys commands, Oriented to person, place, time, situation, Appropriate for age. Respiratory: No deficits noted. Airway is patent Respiratory effort is even, unlabored, Respiratory pattern is regular, symmetrical. 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 - Infectious Disease History:: Denies. - Social history:: Smoking status: Patient denies any tobacco usage or history of. Screenin:10 [facility] ED Fall Risk Assessment (Adult) History of falling in the last 3 months, cm10 including since admission No falls in past 3 months (0 pts) Confusion or Disorientation No (0 pts) Intoxicated or Sedated No (0 pts) Impaired Gait No (0 pts) Mobility Assist Device Used No (0 pt) Altered Elimination No (0 pt) Score/Fall Risk Level 0 - 2 = Low Risk Oriented to surroundings, Maintained a safe environment, Hourly rounding (assess needs \T\ fall precautionary measures) done. Abuse screen: Denies threats or abuse. Denies injuries from another. Nutritional screening: No deficits noted. Tuberculosis screening: No symptoms or risk factors identified. Assessment: 17:34 General: Appears uncomfortable, Behavior is calm, cooperative. Pain: Complains of pain mb9 in head and tooth Quality of pain is described as aching. Neuro: Patrick Agitation-Sedation Scale (RASS): 0 - Alert and Calm Level of Consciousness is awake, alert, obeys commands, Oriented to person, place, time, situation, Appropriate for age. Cardiovascular: Patient's skin is warm and dry. Respiratory: Airway is patent Respiratory effort is even, unlabored, Respiratory pattern is regular, symmetrical. GI: No signs and/or symptoms were reported involving the gastrointestinal system. : No signs and/or symptoms were reported regarding the genitourinary system. EENT: Oral mucosa is moist. Derm: Skin is pink, warm \T\ dry. Musculoskeletal: Range of motion: intact in all extremities. 18:59 Reassessment: DC ON HOLD FOR ERP RE-EVAL. bp Vital Signs: 17:08 BP 146 / 96; Pulse 85; Resp 19; Temp 99.9(O); Pulse Ox 100% on R/A; Weight 89.81 kg; cm10 Height 5 ft. 3 in. ; Pain 8/10; 18:33 BP 127 / 85; Pulse 74; Resp 16; Pulse Ox 100% on R/A; mb9 17:08 Body Mass Index 35.07 (89.81 kg, 160.02 cm) cm10 17:08 Pain Scale: Adult cm10 ED Course: 17:08 Patient arrived in ED. cm10 17:09 Law Whelan PA is PHCP. cp 17:09 Law Durham MD is Attending Physician. cp 17:09 Triage completed. cm10 17:10 Arm band placed on right wrist. Patient placed in an exam room, on a stretcher. cm10 17:10 Patient has correct armband on for positive identification. Bed in low position. Call cm10 light in reach. Side rails up X2. Provided Education on: ER PROCESS AND PROCEDURES.. Pulse ox on. NIBP on. 17:13 Mary Ann Romero, RN is Primary Nurse. mb9 17:34 Group A Streptococcus Rapid Sent. mb9 17:34 COVID-19 Ag + Flu A+B Ag Sent. mb9 17:34 Test, Urine Sent. mb9 17:34 UA W/ Microscopic Sent. mb9 17:34 No provider procedures requiring assistance completed. mb9 19:16 Patient did not have IV access during this emergency room visit. vc1 Administered Medications: 17:33 Drug: Acetaminophen PO 1000 mg PO once Route: PO; mb9 18:28 Follow up: Response: No adverse reaction mb9 18:33 Drug: Ibuprofen PO 800 mg PO once Route: PO; mb9 18:53 Follow up: Response: No adverse reaction bp Medication: 17:10 VIS not applicable for this client. cm10 Outcome: 18:37 Discharge ordered by MD. cp 19:16 Discharged to home ambulatory, vc1 19:16 Condition: stable 19:16 Discharge instructions given to patient, Instructed on discharge instructions, follow up and referral plans. medication usage, Demonstrated understanding of instructions, follow-up care, medications, Prescriptions given X 2, 19:16 Patient left the ED. vc1 Signatures: Law Whelan PA PA cp Devin Veronica RN RN bp Sheryl Tiwari RN RN vc1 Mary Ann Romero, RN RN mb9 Madeline Florez RN RN cm10 Corrections: (The following items were deleted from the chart) 17:10 17:09 LMP 03/09/2025, unknown cm10 cm10
--- NOTE | 2025-03-22 18:37 | EDPHYS ---
Physician Documentation [facility] Name: Trish Yung Age: 30 yrs Sex: Female : 1995 Arrival Date: 03/22/2025 Time: 16:57 Bed 6 Private MD: ATUL Physician Law Durham HPI: 03/22 17:15 This 30 yrs old Black Female presents to ER via EMS with complaints of Flu Symptoms. cp 17:15 The patient or guardian reports sore throat, chills, body aches. cp 17:15 Onset: The symptoms/episode began/occurred suddenly, today. cp 19:00 Patient c/o right lower back molar pain that started today. 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 - Infectious Disease History:: Denies. - Social history:: Smoking status: Patient denies any tobacco usage or history of. ROS: 17:20 Constitutional: Positive for body aches, chills, Negative for fever, poor PO intake, cp 17:20 ENT: Positive for dental pain, sore throat, 17:20 Cardiovascular: Negative for chest pain, edema, palpitations, cp 17:20 Respiratory: Negative for cough, shortness of breath, wheezing, 17:20 Abdomen/GI: Positive for abdominal pain, Negative for vomiting, diarrhea, constipation, 17:20 Eyes: Negative for injury, pain, redness, and discharge, cp 17:20 Neuro: Negative for altered mental status, cp 17:20 All other systems are negative, Exam: 17:22 Constitutional: The patient appears in no acute distress, alert, awake, cp non-diaphoretic, non-toxic, well developed, well nourished, overweight 17:22 Head/Face: Normocephalic, atraumatic. cp 17:22 Eyes: Periorbital structures: appear normal, Conjunctiva: normal, no exudate, no injection, Sclera: no appreciated abnormality, Lids and lashes: appear normal, bilaterally, 17:22 ENT: External ear(s): are unremarkable, Ear canal(s): are normal, clear, TM's: dullness, bilaterally, Nose: is normal, Mouth: Lips: moist, Oral mucosa: pink and intact, moist, Gums: normal with healthy appearance, Posterior pharynx: Airway: no evidence of obstruction, patent, Tonsils: no enlargement, no exudate, erythema, is not appreciated, Dental exam: abscess, is not appreciated, dental caries, that is moderate, diffusely, fractured teeth are noted, specifically the lower right third molar (#32), pain, that is moderate, specifically in the lower right third molar (#32), Voice: is normal, 17:22 Neck: ROM/movement: Meningeal signs: are not present, nuchal rigidity, is not appreciated, 17:22 Chest/axilla: Inspection: normal, 17:22 Cardiovascular: Rate: normal, Rhythm: regular, JVD: is not appreciated, 17:22 Respiratory: the patient does not display signs of respiratory distress, Respirations: normal, no use of accessory muscles, no retractions, labored breathing, is not present, Breath sounds: are clear throughout, no decreased breath sounds, no stridor, no wheezing, 17:22 Abdomen/GI: Inspection: obese Palpation: abdomen is soft and non-tender, in all quadrants, 17:22 Back: CVA tenderness, is absent, Vital Signs: 17:08 BP 146 / 96; Pulse 85; Resp 19; Temp 99.9(O); Pulse Ox 100% on R/A; Weight 89.81 kg; cm10 Height 5 ft. 3 in. ; Pain 8/10; 18:33 BP 127 / 85; Pulse 74; Resp 16; Pulse Ox 100% on R/A; mb9 17:08 Body Mass Index 35.07 (89.81 kg, 160.02 cm) cm10 17:08 Pain Scale: Adult cm10 MDM: 17:13 Medical Screening Exam initiated manolo 18:00 Differential diagnosis: flu, COVID-19, uti, dental abscess. cp 18:37 Data reviewed: vital signs, nurses notes, lab test result(s), and as a result, I will cp discharge patient. 18:37 I considered the following discharge prescriptions or medication management in the emergency department Medications were administered in the Emergency Department. See MAR. Counseling: I had a detailed discussion with the patient and/or guardian regarding the historical points, exam findings, and any diagnostic results supporting the discharge/admit diagnosis, lab results, to return to the emergency department if symptoms worsen or persist or if there are any questions or concerns that arise at home. Response to treatment: the patient's symptoms have mildly improved after treatment, and as a result, I will discharge patient. 03/22 17:14 Order name: UA W/ Microscopic; Complete Time: 18:25 cp 03/22 18:26 Interpretation: Normal except: [facility] Turbid; UBLD Trace; UPH 7.5. cp 03/22 17:14 Order name: Test, Urine; Complete Time: 18:25 cp 03/22 17:14 Order name: Group A Streptococcus Rapid; Complete Time: 18:25 cp 03/22 17:21 Order name: COVID-19 Ag + Flu A+B Ag; Complete Time: 18:33 iw 03/22 18:33 Interpretation: Reviewed. cp 03/22 18:01 Order name: Throat Culture EDMS Administered Medications: 17:33 Drug: Acetaminophen PO 1000 mg PO once Route: PO; mb9 18:28 Follow up: Response: No adverse reaction mb9 18:33 Drug: Ibuprofen PO 800 mg PO once Route: PO; mb9 18:53 Follow up: Response: No adverse reaction bp Disposition Summary: 03/22/25 18:37 Discharge Ordered Notes: Location: Home cp Problem: new cp Symptoms: have improved cp Condition: Stable cp Diagnosis - Headache cp - Chills (without fever) cp - Acute pharyngitis, unspecified cp - Disorder of teeth and supporting structures, unspecified cp Followup: cp - With: Private Physician - When: 2 - 3 days - Reason: Worsening of condition Discharge Instructions: - Discharge Summary Sheet cp - Dental Pain cp - General Headache Without Cause cp - Pharyngitis cp - Sore Throat cp - Viral Illness, Adult cp Forms: - Medication Reconciliation Form cp - Antibiotic Education cp - Prescription Opioid Use cp - Patient Portal Instructions cp - Leadership Thank You Letter cp Prescriptions: - Amoxicillin 875 mg Oral Tablet - take 1 tablet ORAL route every 12 hours for 10 days; 20 tablet; Refills: 0, cp Product Selection Permitted - Ibuprofen 800 mg Oral Tablet - take 1 tablet ORAL route every 8 hours As needed take with food; 30 tablet; cp Refills: 0, Product Selection Permitted Addendum: 03/23/2025 22:21 Co-signature as Attending Physician, Law Durham MD I agree with the assessment and c cohn plan of care. Signatures: Dispatcher [employer] EDLaw Cuadra MD MD cha Page, Corey, PA PA cp Heather, Ann, RN RN mb9 Madeline Florez RN RN cm10 Devin Veronica RN bp Corrections: (The following items were deleted from the chart) 03/22 17:21 17:21 COVID-19 Ag + Flu A+B Ag+I.LAB.BRZ ordered. [facility] 18:35 18:34 Constitutional: Positive for body aches, chills, Negative for fever, poor PO cp intake, cp 18:35 18:34 ENT: Positive for sore throat, cp cp 03/23 18:22 03/22 17:20 ENT: Positive for sore throat, cp cp
[2025-03-22 19:50] VITALS: TEMP 99.9; O2SAT 100
[2025-03-22 19:51] VITALS: BP 127/85
== END 2025-03-22 19:16 | disposition home or self-care (01) ==
LOC: ER 16:57
DX: R51.9 Headache, unspecified (principal); R68.83 Chills (without fever); J02.9 Acute pharyngitis, unspecified; K08.89 Other specified disorders of teeth and supporting structures; Z11.52 Encounter for screening for COVID-19
CPT/HCPCS: 36415; 81001; 81025; 87070; 87428; 99284